=== PATIENT | male | born 1940 | race Caucasian/White ===

== ENCOUNTER 2017-04-29 07:41 | Inpatient (IN) ==
--- NOTE | 2017-04-28 21:38 | Discharge Summary ---
<Lissette Diallosita Grace - Last Filed: 04/28/17 21:36> Date of Encounter: 04/28/17 - Discharge Diagnosis (1) Status post total bilateral knee replacement Priority: Primary Status: Acute (2) Arthritis of both knees Priority: Primary Status: Acute (3) HTN (hypertension) Priority: Secondary Status: Chronic Qualifiers: Hypertension type: essential hypertension Qualified Code(s): I10 - Essential (primary) hypertension (4) DMII (diabetes mellitus, type 2) Priority: Secondary Status: Chronic Qualifiers: Diabetes mellitus complication status: with unspecified complications Diabetes mellitus halfway insulin use: unspecified director of program management insulin use status Qualified Code(s): E11.8 - Type 2 diabetes mellitus with unspecified complications (5) Thyroid disease Priority: Secondary Status: Chronic (6) Obesity Priority: Secondary Status: Chronic Qualifiers: Obesity type: due to excess calories Obesity classification: unspecified obesity classification Serious obesity comorbidity presence: unspecified whether serious comorbidity present Qualified Code(s): E66.09 - Other obesity due to excess calories; Z68.33 - Body mass index (BMI) 33.0-33.9, adult; Z68.33 - Body mass index (BMI) 33.0-33.9, adult - Discharge Medications Home Medications: Aspirin Enteric Coated [Aspirin EC] 325 mg PO BID #42 tablet. 04/28/17 [Rx] OxyCODONE Immed Rel [Roxicodone 5 MG] 5 mg PO Q6HR PRN #28 tablet 04/28/17 [Rx] Aspirin [Lo-Dose Aspirin EC] 81 mg PO DAILY 04/29/17 [History] Atorvastatin [Lipitor] 40 mg PO HS 04/29/17 [History] Cyanocobalamin (Vitamin B-12) [Vitamin B-12] 1,000 mcg SL DAILY 04/29/17 [ History] Diltiazem HCl [Diltiazem 24Hr Cd] 360 mg PO DAILY 04/29/17 [History] Donepezil [Aricept] 10 mg PO HS 04/29/17 [History] Glimepiride [Amaryl] 4 mg PO DAILY 04/29/17 [History] Glucosamine HCl/Chondr Long A Na [Cvs Glucosamine-Chondr Tablet] 1 tab PO DAILY [History] Insulin ASPART [NovoLOG] 5 unit SQ QPM 04/29/17 [History] Labetalol HCl 200 mg PO BID 04/29/17 [History] Levothyroxine [Synthroid] 100 mcg PO 0630 04/29/17 [History] Metformin HCl [Metformin HCl ER] 500 mg PO DAILY 04/29/17 [History] Mv-Mn/FA/Vit K1/Lycop/Lut/Zeax [Ocuvite Eye + Multi Tablet] 1 tab PO DAILY 04/29 [History] [place]-3/Dha/Epa/Fish Oil [Fish Oil 1,000 mg Softgel] 1 each PO DAILY 04/29/17 [ History] Pioglitazone HCl [Actos] 30 mg PO DAILY 04/29/17 [History] Allergies/Adverse Reactions: 3 Allergy/AdvReac Type Severity Reaction Status Date / Time No Known Allergies Allergy Verified 04/29/17 08:39 Primary care physician: Jayson Au MD - Patient Status Disposition: Transfer Inpatient Rehab Fac Condition: Good - Discharge Instructions Follow Up With: Jayson Au MD [Primary Care Provider] - 05/09/17 8:00 am Jad Choi MD [Partnered Physician] - 05/29/17 5:00 pm Marium Diallo PAC [Physician [employer]] - 05/09/17 9:15 am - Hospital Course Hospital course: Mr. Mike is a 76 year old male - Time Spent with Patient Total time spent providing and/or coordinating discharge services: <Jad Choi - Last Filed: 05/03/17 08:32> Date of Encounter: 05/03/17 Time of Encounter: 08:29 - Discharge Diagnosis (1) Status post total bilateral knee replacement Priority: Primary Status: Acute (2) Arthritis of both knees Priority: Primary Status: Chronic (3) HTN (hypertension) Priority: Secondary Status: Chronic Qualifiers: Hypertension type: essential hypertension Qualified Code(s): I10 - Essential (primary) hypertension (4) DMII (diabetes mellitus, type 2) Priority: Secondary Status: Chronic Qualifiers: Diabetes mellitus complication status: with unspecified complications Diabetes mellitus halfway insulin use: unspecified director of program management insulin use status Qualified Code(s): E11.8 - Type 2 diabetes mellitus with unspecified complications (5) Thyroid disease Priority: Secondary Status: Chronic (6) Obesity Priority: Secondary Status: Chronic Qualifiers: Obesity type: due to excess calories Obesity classification: adult class 1 (BMI 30 - 34.9) Serious obesity comorbidity presence: unspecified whether serious comorbidity present Body mass index: BMI 33.0-33.9 Qualified Code(s) : E66.09 - Other obesity due to excess calories; Z68.33 - Body mass index (BMI) 33.0-33.9, adult; Z68.33 - Body mass index (BMI) 33.0-33.9, adult (7) Acute blood loss anemia Priority: Primary Status: Acute (8) Acute kidney injury Priority: Primary Status: Acute (9) Obstructive uropathy Priority: Primary Status: Acute (10) Chronic kidney disease, stage 3 Priority: Secondary Status: Chronic Primary care physician: Jayson Au MD - Patient Status Functional capacity at discharge: uses cane/walker Overall status at discharge: patient is progressing back to baseline - Hospital Course Hospital course: Mr. Mike is a 76 year old male Status post bilateral total knee replacements. Patient's hematocrit dropped to 25 received 2 units packed red blood cells. Patient received a third unit prior to discharge. Patient with increase in creatinine was evaluated by his abrasive coating machine operator. Diagnosed with obstructive uropathy catheter placed. The patient had an uneventful postoperative course. They received antibiotics and physical therapy and were discharged in stable condition. There will follow -up in the office in 2 weeks. - Time Spent with Patient Total time spent providing and/or coordinating discharge services:
--- NOTE | 2017-04-28 21:46 | Physician Discharge Referral ---
<Marium Diallo L - Last Filed: 04/28/17 21:44> ExtendedCare Referral Info Transfer To: F Provider in Charge: Provider in Charge after Transfer: PCP Institutional Level of Care: Skilled - Diagnosis (1) Status post total bilateral knee replacement Priority: Primary Status: Acute (2) Arthritis of both knees Priority: Primary Status: Acute (3) HTN (hypertension) Priority: Secondary Status: Chronic (4) DMII (diabetes mellitus, type 2) Priority: Secondary Status: Chronic (5) Thyroid disease Priority: Secondary Status: Chronic (6) Obesity Priority: Secondary Status: Chronic Expected Duration of Placement: < 30 days Prognosis: Good Aware of Diagnosis: Patient Aware of Prognosis: Patient - Transfer Medications Home Medications: Aspirin Enteric Coated [Aspirin EC] 325 mg PO BID #42 tablet. 04/28/17 [Rx] OxyCODONE Immed Rel [Roxicodone 5 MG] 5 mg PO Q6HR PRN #28 tablet 04/28/17 [Rx] Aspirin [Lo-Dose Aspirin EC] 81 mg PO DAILY 04/29/17 [History] Atorvastatin [Lipitor] 40 mg PO HS 04/29/17 [History] Cyanocobalamin (Vitamin B-12) [Vitamin B-12] 1,000 mcg SL DAILY 04/29/17 [ History] Diltiazem HCl [Diltiazem 24Hr Cd] 360 mg PO DAILY 04/29/17 [History] Donepezil [Aricept] 10 mg PO HS 04/29/17 [History] Glimepiride [Amaryl] 4 mg PO DAILY 04/29/17 [History] Glucosamine HCl/Chondr Long A Na [Cvs Glucosamine-Chondr Tablet] 1 tab PO DAILY [History] Insulin ASPART [NovoLOG] 5 unit SQ QPM 04/29/17 [History] Labetalol HCl 200 mg PO BID 04/29/17 [History] Levothyroxine [Synthroid] 100 mcg PO 0630 04/29/17 [History] Metformin HCl [Metformin HCl ER] 500 mg PO DAILY 04/29/17 [History] Mv-Mn/FA/Vit K1/Lycop/Lut/Zeax [Ocuvite Eye + Multi Tablet] 1 tab PO DAILY 04/29 [History] [place]-3/Dha/Epa/Fish Oil [Fish Oil 1,000 mg Softgel] 1 each PO DAILY 04/29/17 [ History] Pioglitazone HCl [Actos] 30 mg PO DAILY 04/29/17 [History] Allergies/Adverse Reactions: 3 Allergy/AdvReac Type Severity Reaction Status Date / Time No Known Allergies Allergy Verified 04/29/17 08:39 - Respiratory Orders None Smoking Cessation: Smoking cessation has been advised. For more information, call the [place] Quit Line at 4-646-CJCF-NOW. - Ancillary Orders May use pressure relief devices daily prn, May go on GERALD w/family/respon constitution party w /meds at nurse discretion PRN, May consult with Dentist, Linseed Oil Press Tender, Operating Theatre Technician PRN - Mobility Orders Chair, Ambulate - Rehabiliation Orders Rehab Potential: Good Rehab Orders: ROM Exercises, Evaluation for Physical Therapy, Evaluation for Occupational Therapy - Treatments Skin tear care topically daily PRN per policy List/Other: Opsite dressing, leave intact until first post-operative visit. If dressing becomes >50% saturated, contact office, remove dressing and place appropriate dressing in its place. Do not allow for dressing to get wet. Betina/Zipline in place, plan to remove at post-operative day #14-16. Total Joint Precautions x 6 weeks Apply cold therapy wrap 3-6x/day for 20 minutes at a time. Encourage ambulation throughout the day Use Incentive spirometer 10x/hour. Elevate affected extremity above heart as tolerated. Brace: Wear knee immobilizer at night x 2 weeks. - Diet Orders Regular CERTIFICATION: I certify that the transfer of the above named patient to an Extended Care Facility is necessary for the continuing treatment of the diagnosis listed. The above information is true and accurate reflection of patient's current condition. Confidential - Redisclosure prohibited without a patient's written consent. <Jad Choi - Last Filed: 05/02/17 08:15> - Diagnosis (1) Status post total bilateral knee replacement Status: Acute (2) Arthritis of both knees Status: Chronic (3) HTN (hypertension) Status: Chronic (4) DMII (diabetes mellitus, type 2) Status: Chronic (5) Thyroid disease Status: Chronic (6) Obesity Status: Chronic (7) Acute blood loss anemia Status: Acute - Respiratory Orders Smoking Cessation: Smoking cessation has been advised. For more information, call the [place] [employer] Quit Line at 8-283-ILAN-NOW. CERTIFICATION: I certify that the transfer of the above named patient to an Extended Care Facility is necessary for the continuing treatment of the diagnosis listed. The above information is true and accurate reflection of patient's current condition. Confidential - Redisclosure prohibited without a patient's written consent.
--- NOTE | 2017-04-29 06:26 | History & Physical Report ---
Date of Encounter: 04/29/17 Time of Encounter: 06:26 24 Hour HP Update - Instructions Instructions: If the History and Physical is less than 30 days old and was completed prior to A.M. admission and or procedure and has NOT been updated on calendar day of procedure please complete this update prior to performing procedure. - Update Patient reports changes in Medical Condition: No Changes in examination, assessment, or condition: No Changes in Medication: No Preop tests/diagnostics Reviewed: Yes Surgery Remains Indicated: Yes Consent for Planned Operative Procedure(s) Verified: Yes - Pre-Operative Checklist Preoperative Checklist Indicated: No Prophylactic Antibiotic Ordered: Yes Is VTE Prophylaxis Indicated?: Yes
[2017-04-29] MEDS ORDERED: Ethanol\\Acetic Acid\\Na Ace\\Ben 1,000 ML IRRIG.SOLN IR ONE (08:02)
[2017-04-29] MEDS ORDERED: CeFAZolin Syr 2,000MG/20 ML 2,000 MG/20 ML SYRINGE IVPB ONE (08:10)
[2017-04-29] MEDS ORDERED: Plasma-Lyte A (PH 7.4) 1,000 ML IVC SCH (08:15)
--- NOTE | 2017-04-29 08:39 | Anesthesia Evaluation PreOp ---
Date of Encounter: 04/29/17 Time of Encounter: 08:37 - Past History Planned Operation: Bilateral total knee (robotic assisted) Cardiac History: HTN Pulmonary History: Former smoker PACKAGE SEALER History: Denies Any Significant HX Other Medical History: Renal (ckd), Diabetes Type II (uses oral medications and insulin; well controlled), Other (mild dementia) Anesthesia History: No Prior Anesthetic Complications, Past Anesthesia ( colonoscopy only) Alcohol Use: none Drug use: none Medications and Allergies Hydrochlorothiazide 02/10/15 [History] Metformin 02/10/15 [History] Synthroid 02/10/15 [History] predniSONE [PredniSONE] 10 mg PO DAILY #21 tablet 10/05/16 [Rx] Aspirin Enteric Coated [Aspirin EC] 325 mg PO BID #42 tablet. 04/28/17 [Rx] OxyCODONE Immed Rel [Roxicodone 5 MG] 5 mg PO Q6HR PRN #28 tablet 04/28/17 [Rx] 3 Allergy/AdvReac Type Severity Reaction Status Date / Time No Known Allergies Allergy Verified 04/29/17 08:39 - Meds/Allergy Pre-op Review Medications Reviewed: Yes Allergies Reviewed: Yes Beta Blockers on Current Med List: Yes (labetalol) If Beta Blockers taken, Date/Time (Last Dose taken): 04-29-17 labetalol 6:15 Anesthesia Results - Labs Laboratory Tests 04/22/17 04/22/17 04/22/17 08:44 08:44 08:44 WBC 6.0 Hgb 12.0 L Hct 38.2 Plt Count 224 PT 11.5 INR 1.1 APTT 32.8 Sodium 141 Potassium 4.2 Chloride 106 Carbon Dioxide 26 BUN 21 Creatinine 1.33 H Est GFR ( Amer) > 60 Est GFR (Non-Af Amer) 52 L BUN/Creatinine Ratio 16 Est Mean Plasma Glucose Hemoglobin A1c 04/22/17 08:44 WBC Hgb Hct Plt Count PT INR APTT Sodium Potassium Chloride Carbon Dioxide BUN Creatinine Est GFR ( Amer) Est GFR (Non-Af Amer) BUN/Creatinine Ratio Est Mean Plasma Glucose 137 Hemoglobin A1c 6.4 H - Imaging EKG: report reviewed, image reviewed (SINUS BRADYCARDIA WITH FIRST DEGREE AV BLOCK) Anesthesia Exam Last Vital Signs Temp 97.9 F 04/29/17 08:08 Pulse 60 04/29/17 08:08 Resp 18 04/29/17 08:08 BP 143/65 04/29/17 08:08 Pulse Ox 98 04/29/17 08:08 Weight: 95 kg NPO (# of Hours): > 8 hrs - HEENT Pupil (Motor): Pupils equal, EOMI Mallampati: II Teeth: Edentulous Denture Type: Upper: Complete, Lower: Complete Oral Opening: Greater than 3 - PACKAGE SEALER LOC: Oriented - Cardiac Rhythm: Regular Murmur: None - Pulmonary Breath Sounds: bilateral Clear Respiratory Effort: Symmetrical Anesthesia Assess/Plan ASA Score: 3 Modified Collins Scale for Level of Consciousness: Cooperative, oriented, and tranquil Anesthetic Plan: General (offered duramorph spinal - patient refusing at this time) Monitoring Plan: Standard Monitors Recovery Plan: PACU
[2017-04-29] MEDS ORDERED: Acetaminophen IV 1,000 MG/100 ML INFUS..BTL IVPB ONE (08:41)
[2017-04-29] MEDS ORDERED: *HR* Succinylcholine 200 MG/10 ML VIAL IVP ONE (09:34)
[2017-04-29] MEDS ORDERED: *HR* Propofol 200 MG/20 ML VIAL IVP ONE (09:34)
[2017-04-29] MEDS ORDERED: *HR* Midazolam HCl 2 MG/2 ML VIAL ONE (09:34)
[2017-04-29] MEDS ORDERED: *HR* FentaNYL (PF) 100 MCG/2 ML VIAL ONE ×2 (09:34)
[2017-04-29] MEDS ORDERED: *HR* Phenylephrine 10 MG/ML VIAL ONE (09:34)
[2017-04-29] MEDS ORDERED: Dexamethasone 4 MG/ML VIAL ONE (09:39)
[2017-04-29] MEDS ORDERED: Ketorolac 30 MG/ML VIAL ONE (09:39)
[2017-04-29] MEDS ORDERED: Ondansetron 4 MG/2 ML VIAL ONE (09:39)
[2017-04-29] MEDS ORDERED: Ondansetron 4 MG/2 ML VIAL IVP PRN ×2 (09:43→14:00)
--- NOTE | 2017-04-29 11:35 | Orthopedic Operative Note ---
Date of procedure: 04/29/17 Pre-op diagnosis: Bilateral knee arthritis Post-op diagnosis: same Procedure: Procedure: Bilateral robotic-assisted Total knee replacement Estimated blood loss: 600 cc Hardware: Metal and polyethylene replacement. Ector Femur: 5 bilateral Tibia: 5 left 4 right PS insert: 11 bilateral Patella: 36 bilateral Exam Under anesthesia:as calculated by the robot hyperextension bilateral 1 degree full flexion, no instability Procedural Notes: She does have grade 4 arthritic change in both knees at the medial compartment and patellofemoral joints. Operative procedure: The patient was brought to the operating room and placed on the operating room table. After general anesthesia was administered the operative knee was examined. Findings were noted in the exam under anesthesia. Surgery began with the left knee followed by the right knee any differences will be outlined. The operative extremity was prepped and draped in sterile surgical fashion. The patient received IV antibiotics prior to skin incision. A standard midline incision was made centered over the patella. The incision was made through the skin and subcutaneous tissue. A medial parapatellar tendon approach was performed. Care was taken to preserve tissue along the medial aspect of the patella. And to protect the patella tendon. The deep MCL was released off the medial tibia. The infra patella fat pad was excised. The patella was everted and cut was made at the level of the insertion of the quadriceps and patella tendon. The patella was sized to 36 the guide was seated and the lug holes are drilled. Knee was brought into flexion. Patient noted to have grade 4 arthritic changes medial compartments patellofemoral joints. Steinmann pins were placed in the tibia and the femur for the tibial and femoral arrays respectively. Checkpoints were also placed in the tibia and the femur for calculation purposes. The knee including the femur and the tibial registered. Osteophytes , ACL and PCL were excised at this point. Extension was to and no varus and valgus stresses were assessed, 90 degrees of flexion varus and valgus stresses were assessed and components were adjusted on the computer for the robotic cut positions. Femoral cuts were made first with robotic assistance, these included the anterior cut posterior cuts chamfer cuts. Tibial cut was then performed with robotic assistance as well. Bone fragments were removed, as well as the medial and lateral meniscus. The size 5 bilateral femoral guide was seated box cut was made lug holes are drilled. The size 5 left, 4 right tibial tray was seated and prepared with the fin cutter. Trial reduction with the 11 PS Georgie revealed hyperextension of 1 degree bilateral and full flexion. No varus valgus instability. Trial reduction revealed excellent patella tracking. All trial components were removed all bony surfaces were irrigated. Tibia cemented first followed by femur 11 PS Georgie size was seated and secured patella. Patient had similar findings for motion and stability. The knee was closed by the PA. The knee was then irrigated out with 2 L of pulse irrigation. The extensor mechanism was closed with #2 FiberWire suture and #2 PDS suture. The subcutaneous tissue was then irrigated and closed deep with #1 PDS suture superficially with 0 PDS suture and skin was closed with zip tie The patient was then placed in a sterile dressing and a postoperative brace extubated and transferred to recovery room in stable condition. Anesthesia: LAVELLA Surgeon: Jad Choi Condition: stable Disposition: PACU
[2017-04-29] MEDS: *HR* HYDROmorphone (PF) 1 MG/ML SYRINGE IVP PRN ×2 (12:29→12:31)
[2017-04-29 12:38] LABS: Hematocrit 34.3 % (37.5-50.1); Hemoglobin 10.7 g/dL (12.9-16.9)
[2017-04-29] MEDS ORDERED: *HR* HYDROmorphone (PF) 1 MG/ML SYRINGE ONE (12:41)
[2017-04-29] MEDS ORDERED: *HR* HYDROmorphone (PF) 1 MG/ML SYRINGE IM ONE (12:43)
[2017-04-29] MEDS ORDERED: *HR* HYDROmorphone (PF) 1 MG/ML SYRINGE IVP ONE (13:01)
[2017-04-29] MEDS ORDERED: Sennosides 8.6 MG TABLET PO PRN (14:00)
[2017-04-29] MEDS ORDERED: MOM Conc 10 ML UD.LIQ PO PRN (14:00)
[2017-04-29] MEDS ORDERED: Dextrose Gel 15 GM PO PRN ×2 (14:00)
[2017-04-29] MEDS ORDERED: *HR* Dextrose 50 % in Water (Syg) 50 ML SYRINGE IVP PRN (14:00)
[2017-04-29] MEDS ORDERED: Naloxone 0.4 MG/ML INJ IVP PRN (14:00)
[2017-04-29] MEDS ORDERED: *HR* OxyCODONE Immed Rel 5 MG TABLET PO PRN (14:00)
[2017-04-29] MEDS ORDERED: D5% in Water 1,000 ML IVC PRN (14:00)
[2017-04-29] MEDS ORDERED: Temazepam 15 MG CAPSULE PO PRN (14:00)
--- NOTE | 2017-04-29 14:17 | Anesthesia Evaluation Post Op ---
Date of Encounter: 04/29/17 Time of Encounter: 14:05 - Vital Signs Vital Signs: Last Vital Signs Temp 99.0 F 04/29/17 14:08 Pulse 58 04/29/17 14:08 Resp 14 04/29/17 14:08 BP 146/85 04/29/17 14:08 Pulse Ox 99 04/29/17 14:12 - Lungs Lungs: Clear Ascult./Percussion - Airway Airway: Non-obstructed - Cardiovascular Regular Rate - Mental Status Mental Status: Alert & Oriented, Answers Appropriately - Pain Pain Scale: 4 - Nausea Vomiting Nausea Vomiting: Not Present - Hydration Hydration: NPO - Discharge PostOp Status: Transfer Patient to floor
[2017-04-29] MEDS: Insulin LISPRO 300 UNITS/3 ML VIAL SQ SCH ×4 (14:50→21:16)
[2017-04-29] MEDS: *HR* Metformin 500 MG TABLET PO SCH (15:33)
[2017-04-29] MEDS: *HR* OxyCODONE Immed Rel 5 MG TABLET PO PRN (15:33)
[2017-04-29] MEDS: CeFAZolin Premix DUPLEX 2,000 MG/50 ML BAG IVPB SCH ×2 (15:35→23:35)
[2017-04-29] MEDS ORDERED: *HR* Enoxaparin 30 MG/0.3 ML SYRINGE SQ SCH (18:00)
[2017-04-29] MEDS: *HR* Enoxaparin 30 MG/0.3 ML SYRINGE SQ SCH (18:45)
[2017-04-29] MEDS: Ringers Solution, Lactated 1,000 ML IVC SCH ×2 (21:29→23:21)
[2017-04-30] MEDS: *HR* HYDROmorphone (PF) 1 MG/ML SYRINGE IVP PRN ×4 (02:20→14:07)
[2017-04-30] MEDS: *HR* Enoxaparin 30 MG/0.3 ML SYRINGE SQ SCH ×2 (04:58→17:08)
[2017-04-30 06:20] LABS: Hematocrit 30.3 % (37.5-50.1); Hemoglobin 9.4 g/dL (12.9-16.9)
[2017-04-30 06:40] LABS: Potassium 4.9 mEq/L (3.5-4.5)
--- NOTE | 2017-04-30 06:45 | Orthopedics Progress Note ---
Date of Encounter: 04/30/17 Time of Encounter: 06:44 - Assessment and Plan (1) Status post total bilateral knee replacement Current Visit: No Status: Acute (2) Arthritis of both knees Current Visit: No Status: Chronic (3) HTN (hypertension) Current Visit: No Status: Chronic Qualifiers: Hypertension type: essential hypertension Qualified Code(s): I10 - Essential (primary) hypertension (4) DMII (diabetes mellitus, type 2) Current Visit: No Status: Chronic Qualifiers: Diabetes mellitus complication status: with unspecified complications Diabetes mellitus ocean transportation intermediary insulin use: unspecified ocean transportation intermediary insulin use status Qualified Code(s): E11.8 - Type 2 diabetes mellitus with unspecified complications (5) Thyroid disease Current Visit: No Status: Chronic (6) Obesity Current Visit: No Status: Chronic Qualifiers: Obesity type: due to excess calories Obesity classification: adult class 1 (BMI 30 - 34.9) Serious obesity comorbidity presence: unspecified whether serious comorbidity present Body mass index: BMI 33.0-33.9 Qualified Code(s) : E66.09 - Other obesity due to excess calories; Z68.33 - Body mass index (BMI) 33.0-33.9, adult; Z68.33 - Body mass index (BMI) 33.0-33.9, adult (7) Acute blood loss anemia Current Visit: Yes Status: Acute Subjective Interval history: Patient was seen this morning doing well without complaints. Afebrile vital signs stable. Operative extremity: Neurovascularly intact Dressing clean dry and intact right, saturated left will be changed today Calves nontender Assessment and plan: Continue with postoperative care Hematocrit 30 Objective Vital signs: Vital Signs Temp Pulse Resp BP Pulse Ox 04/30/17 04:54 98.9 F 67 16 150/67 94 04/30/17 00:02 99.0 F 76 14 129/63 94 04/29/17 18:33 99.0 F 65 14 152/74 98 04/29/17 16:40 98.7 F 60 14 156/85 97 04/29/17 15:02 99.0 F 54 14 142/71 96 04/29/17 14:44 99.3 F 65 14 162/47 99 04/29/17 14:12 99 04/29/17 14:08 99.0 F 58 14 146/85 100 04/29/17 13:40 99.6 F 49 12 128/90 100 04/29/17 13:30 99.6 F 62 12 150/72 99 04/29/17 13:20 50 12 145/71 99 04/29/17 13:10 99.6 F 61 16 165/64 99 04/29/17 13:00 50 9 152/97 98 04/29/17 12:50 49 10 151/74 98 04/29/17 12:40 98.7 F 53 12 157/74 98 04/29/17 12:30 50 12 178/87 99 04/29/17 12:20 57 10 170/58 98 04/29/17 12:10 98.3 F 54 16 188/90 100 04/29/17 08:08 97.9 F 60 18 143/65 98 Intake and Output 04/29/17 04/29/17 04/30/17 15:59 23:59 07:59 Intake Total 20 / 20 510 / 510 Output Total 600 / 600 0 / 0 0 / 0 Balance -580 / -580 510 / 510 0 / 0 Intake: IV Fluids 20 / 20 100 / 100 Ancef Premix DUPLEX 2,000 mg In 100 / 100 50 ml @ 100 mls/hr IVPB Q8HR CARLOS Rx#:[id number] Ancef Syringe 2,000 MG/20 ML 2, 20 / 20 000 mg In 20 ml @ 200 mls/hr IVPB PREOP ONE Rx#:[id number] Oral 410 / 410 Output: Urine 0 / 0 0 / 0 Estimated Blood Loss 600 / 600 Other: Meal Dinner # Voids 1 2 Weight 94.801 kg Blood Glucose* 252 175 - Labs CBC & BMP: 04/30/17 04:43 04/30/17 04:43 Labs: Abnormal lab results Hgb 9.4 g/dL (12.9-16.9) L 04/30/17 04:43 Hct 30.3 % (37.5-50.1) L 04/30/17 04:43 Potassium 4.9 mEq/L (3.5-4.5) H 04/30/17 04:43 BUN 31 mg/dL (8-26) H 04/30/17 04:43 Creatinine 1.92 mg/dL (0.72-1.25) H 04/30/17 04:43 Est GFR ( Amer) 42 (> 60) L 04/30/17 04:43 Est GFR (Non-Af Amer) 34 (> 60) L 04/30/17 04:43 Glucose 218 mg/dL (70-99) H 04/30/17 04:43 POC Glucose 175 (58-89) H 04/29/17 20:32 Calculated Osmolality 301 (280-300) H 04/30/17 04:43 Calcium 8.0 mg/dL (8.6-10.8) L 04/30/17 04:43 - VTE Documentation of Mechanical Device: Venous foot pump, device Consult Discharge Plan - Plan Referrals: Jayson Au MD [Primary Care Provider] -
[2017-04-30] MEDS: *HR* Pioglitazone 30 MG TABLET PO SCH (08:29)
[2017-04-30] MEDS: Insulin LISPRO 300 UNITS/3 ML VIAL SQ SCH ×5 (08:29→20:28)
[2017-04-30] MEDS: Diltiazem CD (24hr) 180 MG CAPSULE PO SCH (08:30)
[2017-04-30] MEDS: *HR* Glimepiride 4 MG TABLET PO SCH (08:30)
[2017-04-30] MEDS: *HR* OxyCODONE Immed Rel 5 MG TABLET PO PRN ×3 (08:30→20:19)
[2017-04-30] MEDS: Cyanocobalamin (B-12) 1,000 MCG TABLET PO SCH (08:30)
[2017-04-30] MEDS: *HR* Metformin 500 MG TABLET PO SCH ×2 (08:30→16:08)
[2017-04-30] MEDS: Multivit/Ca/Min/Fe/FA 1 TAB TABLET PO SCH (08:30)
[2017-04-30] MEDS: Aspirin Enteric Coated 81 MG Tablet PO SCH (08:30)
[2017-04-30] MEDS ORDERED: NON-FORMULARY MEDICATION 1 EACH EACH (Metformin Hcl [Metformin Hcl Er] 500 MG) PO SCH (09:00)
[2017-04-30] MEDS: Fish Oil 1,000 Mg Softgel PO SCH (09:54)
[2017-04-30] MEDS ORDERED: 0.9 % Sodium Chloride 500 ML IVC ONE ×3 (13:31→16:14)
--- NOTE | 2017-04-30 16:21 | Event Note ---
Date of Encounter: 04/30/17 Time of Encounter: 16:19 POD#.1 *Patient has baseline early dementia - on aricept for this. A&O x 1 - patient's family in room, this is patient's baseline. Labs: Decline in kidney function - Baseline GFR 57, Cre 1.33 04/30: GFR 32, Cre 1.99 *2 Bolus Given *No output since 04/29 - Bladder scan performed x 2, 157mL of urine. Order given to Straight cath at 250mL and greater. Continue to bladder scan. Patient seen at bedside. D/C plan: [facility]
[2017-05-01] MEDS: *HR* OxyCODONE Immed Rel 5 MG TABLET PO PRN ×2 (05:18→17:57)
[2017-05-01] MEDS: *HR* Enoxaparin 30 MG/0.3 ML SYRINGE SQ SCH (05:19)
[2017-05-01 05:36] LABS: Hemoglobin 7.8 g/dL (12.9-16.9)
[2017-05-01 05:51] LABS: Calcium 7.9 mg/dL (8.6-10.8); Potassium 4.9 mEq/L (3.5-4.5)
[2017-05-01] MEDS: *HR* HYDROmorphone (PF) 1 MG/ML SYRINGE IVP PRN (06:45)
--- NOTE | 2017-05-01 07:42 | Orthopedics Progress Note ---
Date of Encounter: 05/01/17 Time of Encounter: 07:42 - Assessment and Plan (1) Status post total bilateral knee replacement Current Visit: No Status: Acute (2) Arthritis of both knees Current Visit: No Status: Chronic (3) HTN (hypertension) Current Visit: No Status: Chronic Qualifiers: Hypertension type: essential hypertension Qualified Code(s): I10 - Essential (primary) hypertension (4) DMII (diabetes mellitus, type 2) Current Visit: No Status: Chronic Qualifiers: Diabetes mellitus complication status: with unspecified complications Diabetes mellitus revenue enforcement agent insulin use: unspecified [place] [facility] insulin use status Qualified Code(s): E11.8 - Type 2 diabetes mellitus with unspecified complications (5) Thyroid disease Current Visit: No Status: Chronic (6) Obesity Current Visit: No Status: Chronic Qualifiers: Obesity type: due to excess calories Obesity classification: adult class 1 (BMI 30 - 34.9) Serious obesity comorbidity presence: unspecified whether serious comorbidity present Body mass index: BMI 33.0-33.9 Qualified Code(s) : E66.09 - Other obesity due to excess calories; Z68.33 - Body mass index (BMI) 33.0-33.9, adult; Z68.33 - Body mass index (BMI) 33.0-33.9, adult (7) Acute blood loss anemia Current Visit: Yes Status: Acute Subjective Interval history: Patient was seen this morning doing well without complaints. Afebrile vital signs stable. Operative extremity: Neurovascularly intact Dressing clean dry and intact right, saturated left will be changed today Calves nontender Assessment and plan: Continue with postoperative care Hematocrit 25 transfuse 2 units Objective Vital signs: Vital Signs Temp Pulse Resp BP Pulse Ox 05/01/17 06:38 99.3 F 76 20 139/57 96 05/01/17 04:52 98.8 F 78 16 126/64 96 04/30/17 23:19 99.5 F 77 18 129/55 95 04/30/17 19:05 99.1 F 71 16 117/50 96 04/30/17 15:39 97.7 F 58 20 157/68 93 04/30/17 11:10 98.3 F 76 20 128/61 93 Intake and Output 04/30/17 04/30/17 05/01/17 15:59 23:59 07:59 Intake Total 740 / 740 1010 / 1010 50 / 50 Output Total 300 / 300 Balance 740 / 740 710 / 710 50 / 50 Intake: IV Fluids 500 / 500 500 / 500 0.9 % Sodium Chloride 500 ML @ 500 / 500 500 / 500 1875 mls/hr IVC .Q16M ONE Rx#: [id number] Oral 240 / 240 510 / 510 50 / 50 Output: Urine 0 / 0 Straight Cath 300 / 300 Other: Meal Breakfast Dinner Percent of Meal Consumed 10% 75% Blood Glucose* 133 195 168 - Labs CBC & BMP: 05/01/17 04:38 05/01/17 04:38 Labs: Abnormal lab results Hgb 7.8 g/dL (12.9-16.9) L D 05/01/17 04:38 Hct 25.0 % (37.5-50.1) L 05/01/17 04:38 Potassium 4.9 mEq/L (3.5-4.5) H 05/01/17 04:38 BUN 45 mg/dL (8-26) H D 05/01/17 04:38 Creatinine 2.51 mg/dL (0.72-1.25) H 05/01/17 04:38 Est GFR ( Amer) 31 (> 60) L 05/01/17 04:38 Est GFR (Non-Af Amer) 25 (> 60) L 05/01/17 04:38 Glucose 161 mg/dL (70-99) H 05/01/17 04:38 POC Glucose 168 (58-89) H 05/01/17 07:06 Calcium 7.9 mg/dL (8.6-10.8) L 05/01/17 04:38 - VTE Documentation of Mechanical Device: Venous foot pump, device Consult Discharge Plan - Plan Referrals: Jayson Au MD [Primary Care Provider] -
[2017-05-01] MEDS: *HR* Pioglitazone 30 MG TABLET PO SCH (08:15)
[2017-05-01] MEDS: Cyanocobalamin (B-12) 1,000 MCG TABLET PO SCH (08:15)
[2017-05-01] MEDS: Aspirin Enteric Coated 81 MG Tablet PO SCH (08:16)
[2017-05-01] MEDS: Multivit/Ca/Min/Fe/FA 1 TAB TABLET PO SCH (08:16)
[2017-05-01] MEDS: Diltiazem CD (24hr) 180 MG CAPSULE PO SCH (08:16)
[2017-05-01] MEDS: *HR* Glimepiride 4 MG TABLET PO SCH (08:16)
[2017-05-01] MEDS: *HR* Metformin 500 MG TABLET PO SCH (08:16)
[2017-05-01] MEDS: Fish Oil 1,000 Mg Softgel PO SCH (08:18)
[2017-05-01] MEDS: Insulin LISPRO 300 UNITS/3 ML VIAL SQ SCH ×5 (08:18→22:44)
[2017-05-01] MEDS ORDERED: 0.9 % Sodium Chloride 250 ML ONE ×2 (09:45→13:39)
--- NOTE | 2017-05-01 14:33 | Event Note ---
Date of Encounter: 05/01/17 Time of Encounter: 14:27 Nephro consult put in by Orthopedic surgery for MANNY. Upon talking to the patient , I found out that he is a patient of Dr. Hassan and last saw him in December. I spoke on the phone with SIRIA Kingsley from [facility] and made her aware of the situation and informed her that Dr. Hassan needs to be consulted since this is his patient. Attending physician, Dr. Ovalle made aware of the situation. I had ordered some basic labs for MANNY workup which I have cancelled.
--- NOTE | 2017-05-01 15:54 | Event Note ---
Date of Encounter: 05/01/17 Time of Encounter: 17:15 PCR POD#2 Bilateral TKR Robotic *Patient has baseline early dementia - on aricept for this. A&O x 1 - patient's family in room, this is patient's baseline. Labs: Decline in kidney function - Baseline GFR 57, Cre 1.33 04/30: GFR 32, Cre 1.92 05/01: GFR 25 SCr 2.51 BUN 45 *2 Bolus Given 04/30 *No output since 04/29 - Bladder scan performed x 2, 157mL of urine. Order given to Straight cath at 250mL and greater. Continue to bladder scan. 05/01 @ 1009 "Patient noted to not have voided in 12 hours. Bladder scan revealed 275ml. Patient to be straight cathed per order." Patient seen at bedside. Patient alert and oriented x 1. Receiving PRBCs during exam. Nurse available in room. Patient known to be a patient of Dr. Hassan - consulted for nephro point of view regarding renal decline. Educated on use of incentive spirometer, ambulation, and hydration. Patient educated on post-operative restrictions and care. Discussed with patient's and daughter at bedside patient's situation and they stated satisfaction with our discussion. D/C plan: ECF to [facility] likely on pending nephrology consult/ recommendations.
[2017-05-01] MEDS ORDERED: Insulin LISPRO 300 UNITS/3 ML VIAL SQ SCH (16:51)
[2017-05-02] MEDS: *HR* Enoxaparin 30 MG/0.3 ML SYRINGE SQ SCH ×2 (05:54→17:32)
[2017-05-02] MEDS: *HR* HYDROmorphone (PF) 1 MG/ML SYRINGE IVP PRN (06:02)
[2017-05-02 06:48] LABS: Hematocrit 26.6 % (37.5-50.1); Hemoglobin 9.1 g/dL (12.9-16.9)
[2017-05-02 07:03] LABS: Calcium 7.9 mg/dL (8.6-10.8); Potassium 4.7 mEq/L (3.5-4.5)
--- NOTE | 2017-05-02 08:17 | Orthopedics Progress Note ---
Date of Encounter: 05/02/17 Time of Encounter: 08:16 - Assessment and Plan (1) Status post total bilateral knee replacement Current Visit: No Status: Acute (2) Arthritis of both knees Current Visit: No Status: Chronic (3) HTN (hypertension) Current Visit: No Status: Chronic Qualifiers: Hypertension type: essential hypertension Qualified Code(s): I10 - Essential (primary) hypertension (4) DMII (diabetes mellitus, type 2) Current Visit: No Status: Chronic Qualifiers: Diabetes mellitus complication status: with unspecified complications Diabetes mellitus manager long term care insulin use: unspecified longterm insulin use status Qualified Code(s): E11.8 - Type 2 diabetes mellitus with unspecified complications (5) Thyroid disease Current Visit: No Status: Chronic (6) Obesity Current Visit: No Status: Chronic Qualifiers: Obesity type: due to excess calories Obesity classification: adult class 1 (BMI 30 - 34.9) Serious obesity comorbidity presence: unspecified whether serious comorbidity present Body mass index: BMI 33.0-33.9 Qualified Code(s) : E66.09 - Other obesity due to excess calories; Z68.33 - Body mass index (BMI) 33.0-33.9, adult; Z68.33 - Body mass index (BMI) 33.0-33.9, adult (7) Acute blood loss anemia Current Visit: Yes Status: Acute (8) Acute kidney injury Current Visit: Yes Status: Acute Subjective Interval history: Patient was seen this morning doing well without complaints. Afebrile vital signs stable. Operative extremity: Neurovascularly intact Dressing clean dry and intact right, saturated left will be changed today Calves nontender Assessment and plan: Continue with postoperative care Hematocrit 26 transfuse 2 units creatinine improvement will be discharged tomorrow Objective Vital signs: Vital Signs Temp Pulse Resp BP Pulse Ox 05/02/17 06:48 98.5 F 64 16 127/68 96 05/02/17 04:22 98.8 F 58 16 130/63 95 05/02/17 00:17 99.5 F 69 18 122/66 97 05/01/17 19:11 100.4 F H 71 18 104/67 95 05/01/17 16:52 99.6 F 70 17 113/58 96 05/01/17 14:06 98.7 F 63 16 134/49 98 05/01/17 13:51 98.3 F 67 15 125/59 97 05/01/17 13:16 98.7 F 66 15 119/65 96 05/01/17 11:13 98.5 F 71 20 136/71 93 05/01/17 10:21 98.8 F 65 16 126/68 97 05/01/17 10:06 98.4 F 64 16 116/63 97 Intake and Output 05/01/17 05/02/17 05/02/17 23:59 07:59 15:59 Intake Total 520 / 520 Output Total 150 / 150 275 / 275 Balance 370 / 370 -275 / -275 Intake: Oral 220 / 220 Blood Product 300 / 300 Rbcs Leuko Poor As-1 Unit 300 / 300 [id number] Output: Urine 150 / 150 275 / 275 Other: Meal Dinner Percent of Meal Consumed 75% # Voids 1 Blood Glucose* 211 197 - Labs CBC & BMP: 05/02/17 06:17 05/02/17 06:17 Labs: Abnormal lab results Hgb 9.1 g/dL (12.9-16.9) L 05/02/17 06:17 Hct 26.6 % (37.5-50.1) L 05/02/17 06:17 Sodium 132 mEq/L (136-145) L 05/02/17 06:17 Potassium 4.7 mEq/L (3.5-4.5) H 05/02/17 06:17 BUN 53 mg/dL (8-26) H 05/02/17 06:17 Creatinine 2.12 mg/dL (0.72-1.25) H 05/02/17 06:17 Est GFR ( Amer) 37 (> 60) L 05/02/17 06:17 Est GFR (Non-Af Amer) 31 (> 60) L 05/02/17 06:17 Glucose 200 mg/dL (70-99) H 05/02/17 06:17 POC Glucose 267 (58-89) H 05/01/17 16:54 Calcium 7.9 mg/dL (8.6-10.8) L 05/02/17 06:17 - VTE Documentation of Mechanical Device: Venous foot pump, device Consult Discharge Plan - Plan Referrals: Jayson Au MD [Primary Care Provider] - 05/09/17 8:00 am Jad Choi MD [Partnered Physician] - 05/29/17 5:00 pm Marium Diallo PAC [Physician Mails Supervisor] - 05/09/17 9:15 am
[2017-05-02] MEDS: Multivit/Ca/Min/Fe/FA 1 TAB TABLET PO SCH (08:24)
[2017-05-02] MEDS: Cyanocobalamin (B-12) 1,000 MCG TABLET PO SCH (08:24)
[2017-05-02] MEDS: Insulin LISPRO 300 UNITS/3 ML VIAL SQ SCH ×5 (08:24→21:18)
[2017-05-02] MEDS: Diltiazem CD (24hr) 180 MG CAPSULE PO SCH (08:24)
[2017-05-02] MEDS: Aspirin Enteric Coated 81 MG Tablet PO SCH (08:24)
[2017-05-02] MEDS: *HR* Glimepiride 4 MG TABLET PO SCH (08:24)
[2017-05-02] MEDS: Fish Oil 1,000 Mg Softgel PO SCH (08:36)
[2017-05-02] MEDS: *HR* OxyCODONE Immed Rel 5 MG TABLET PO PRN (08:39)
--- NOTE | 2017-05-02 10:05 | Nephrology Consult Note ---
Date of Encounter: 05/02/17 Time of Encounter: 09:25 Assessment and Plan (1) Acute kidney injury Current Visit: Yes Status: Acute MANNY superimposed on CKD 3, baseline creat 1.3- Most likely related to hypovolemia, post op hgb 7.8. Transfused with 2 units PRBC, Hgb 9.1. Creat peaked 2.51 with improvement today of 2.12. Will do Renal US to rule out obstructive uropathy and place indwelling wong catheter for present time versus PRN straight cath. Obtain UA/C&S. Will continue to monitor. History of Present Illness - Reason for Consult Acute Kidney Injury - History of Present Illness Mr. Mike is a 76 year old male, known to practice with CKD stage 3 in setting of diabetes and hypertension. Last seen in December. Baseline creat 1.3. Also has history of early dementia, present during consult, providing health information. Patient is S/P bilateral knee replacement on Apr.30. She states patient has been having need to void but is unable to urinate and has been having bladder scans performed and has been straight cathed times 2, 250ml and 275 ml respectively. Creat peaked yesterday at 2.51, today slow improvement 2.12. states patient has been eating and drinking. Oral and IV intake yesterday documented at 660cc. denies NSAID use. No hypotension noted. LE with 1+ pitting edema and mild scrotal edema. Noted rec'd 2 units PRBC yesterday for Hgb 7.8, today 9.1. Past Med Surg Social Fam HX - Past Medical History Medical history: dementia, diabetes, hypertension, thyroid disease Psychiatric history: no psych history - Past Surgical History Surgical History: no surgical history - Social History Smoking Status: Former smoker Smokeless Tobacco Status: No Alcohol use: none Drug use: none - Family History Daughter Hx Family Cardiac Disorders: No Hx Family Respiratory Disorders: No Hx Family Cancer: No Hx Family GI Disorders: No Hx Family Endocrine Disorder: No Hx Family Neurologic Disorders: No Medications and Allergies Aspirin Enteric Coated [Aspirin EC] 325 mg PO BID #42 tablet. 04/28/17 [Rx] OxyCODONE Immed Rel [Roxicodone 5 MG] 5 mg PO Q6HR PRN #28 tablet 04/28/17 [Rx] Aspirin [Lo-Dose Aspirin EC] 81 mg PO DAILY 04/29/17 [History] Atorvastatin [Lipitor] 40 mg PO HS 04/29/17 [History] Cyanocobalamin (Vitamin B-12) [Vitamin B-12] 1,000 mcg SL DAILY 04/29/17 [ History] Diltiazem HCl [Diltiazem 24Hr Cd] 360 mg PO DAILY 04/29/17 [History] Donepezil [Aricept] 10 mg PO HS 04/29/17 [History] Glimepiride [Amaryl] 4 mg PO DAILY 04/29/17 [History] Glucosamine HCl/Chondr Long A Na [Cvs Glucosamine-Chondr Tablet] 1 tab PO DAILY [History] Insulin ASPART [NovoLOG] 5 unit SQ QPM 04/29/17 [History] Labetalol HCl 200 mg PO BID 04/29/17 [History] Levothyroxine [Synthroid] 100 mcg PO 0630 04/29/17 [History] Metformin HCl [Metformin HCl ER] 500 mg PO DAILY 04/29/17 [History] Mv-Mn/FA/Vit K1/Lycop/Lut/Zeax [Ocuvite Eye + Multi Tablet] 1 tab PO DAILY 04/29 [History] Sharon-3/Dha/Epa/Fish Oil [Fish Oil 1,000 mg Softgel] 1 each PO DAILY 04/29/17 [ History] Pioglitazone HCl [Actos] 30 mg PO DAILY 04/29/17 [History] 3 Allergy/AdvReac Type Severity Reaction Status Date / Time No Known Allergies Allergy Verified 04/29/17 08:39 Review of Systems All Systems: reviewed and no additional remarkable complaints except as stated Exam - Vital Signs Vital signs: Initial Vital Signs Temp Pulse Resp BP Pulse Ox 97.9 F 60 18 143/65 98 04/29/17 08:08 04/29/17 08:08 04/29/17 08:08 04/29/17 08:08 04/29/17 08:08 Vital Signs - Last 8 Hours Temp Pulse Resp BP Pulse Ox 05/02/17 06:48 98.5 F 64 16 127/68 96 05/02/17 04:22 98.8 F 58 16 130/63 95 Intake and Output 05/01/17 05/02/17 05/02/17 23:59 07:59 15:59 Intake Total 520 / 520 Output Total 150 / 150 275 / 275 Balance 370 / 370 -275 / -275 Intake: Oral 220 / 220 Blood Product 300 / 300 Rbcs Leuko Poor As-1 Unit 300 / 300 [id number] Output: Urine 150 / 150 275 / 275 Other: Meal Dinner Percent of Meal Consumed 75% # Voids 1 Blood Glucose* 211 197 - General Appearance General appearance: well-developed, well-nourished, appears started age, obese EENT: mucous membranes moist Neck: no JVD, no carotid bruit Respiratory: clear Cardiology: edema, regular rate, regular rhythm Additional Comments: LE with 1+ pitting edema and mild scrotal edema. Gastrointestinal: normoactive bowel sounds, no tenderness Integumentary: warm and dry Psychiatric: mood/affect appropriate Results - Lab Results 05/02/17 06:17 05/02/17 06:17 Most recent lab results Calcium 7.9 mg/dL (8.6-10.8) L 05/02/17 06:17 Consult Discharge Plan - Plan Referrals: Jayson Au MD [Primary Care Provider] - 05/09/17 8:00 am Jad Choi MD [Partnered Physician] - 05/29/17 5:00 pm Marium Diallo PAC [Physician Wool Hanker] - 05/09/17 9:15 am
--- NOTE | 2017-05-02 12:28 | Event Note ---
<Marium Diallo - Last Filed: 05/02/17 12:28> Date of Encounter: 05/02/17 MANNY superimposed on CKD 3, baseline creat 1.3- Most likely related to hypovolemia, post op hgb 7.8. Transfused with 2 units PRBC, Hgb 9.1. Creat peaked 2.51 with improvement today of 2.12. Will do Renal US to rule out obstructive uropathy and place indwelling wong catheter for present time versus PRN straight cath. Obtain UA/C&S. Will continue to monitor. <Jad Choi - Last Filed: 05/04/17 06:26> Date of Encounter: 05/04/17 Time of Encounter: 06:26
[2017-05-02 13:28] LABS: Bilirubin,Urine Small (Negative); Blood,Urine Negative (Negative); Clarity,Urine Cloudy (Clear); Color,Urine Yellow (Yellow); Glucose,Urine (UA) Normal (Normal); Ketones,Urine Negative (Negative); Leukocyte Esterase,Urine Negative (Negative); Nitrite,Urine Negative (Negative); PH,Urine 5.5 pH Units (5.0-8.0); Protein,Urine 30 mg/dL (Neg-Trace); Specific Gravity,Urine 1.023 (1.010-1.025); Urobilinogen,Urine Normal (Normal)
[2017-05-02 13:30] LABS: Bacteria,Urine None Seen per hpf (None-Few); Hyaline Casts,Urine None Seen per lpf (None-Few)
[2017-05-02 13:35] LABS: RBC,Urine 0-3 per hpf (0-3); Squamous Epithelial Cell,Urine Few per lpf (None-Few)
[2017-05-02 13:36] LABS: Yeast,Urine Few per hpf (None Seen)
[2017-05-02] MEDS: *HR* Metformin 500 MG TABLET PO SCH (17:32)
[2017-05-03] MEDS: *HR* Enoxaparin 30 MG/0.3 ML SYRINGE SQ SCH ×2 (06:00→17:26)
--- NOTE | 2017-05-03 08:34 | Orthopedics Progress Note ---
Date of Encounter: 05/03/17 Time of Encounter: 08:32 - Assessment and Plan (1) Status post total bilateral knee replacement Current Visit: No Status: Acute (2) Arthritis of both knees Current Visit: No Status: Chronic (3) HTN (hypertension) Current Visit: No Status: Chronic Qualifiers: Hypertension type: essential hypertension Qualified Code(s): I10 - Essential (primary) hypertension (4) DMII (diabetes mellitus, type 2) Current Visit: No Status: Chronic Qualifiers: Diabetes mellitus complication status: with unspecified complications Diabetes mellitus medical terminologist insulin use: unspecified nursing home insulin use status Qualified Code(s): E11.8 - Type 2 diabetes mellitus with unspecified complications (5) Thyroid disease Current Visit: No Status: Chronic (6) Obesity Current Visit: No Status: Chronic Qualifiers: Obesity type: due to excess calories Obesity classification: adult class 1 (BMI 30 - 34.9) Serious obesity comorbidity presence: unspecified whether serious comorbidity present Body mass index: BMI 33.0-33.9 Qualified Code(s) : E66.09 - Other obesity due to excess calories; Z68.33 - Body mass index (BMI) 33.0-33.9, adult; Z68.33 - Body mass index (BMI) 33.0-33.9, adult (7) Acute blood loss anemia Current Visit: Yes Status: Acute (8) Acute kidney injury Current Visit: Yes Status: Acute (9) Obstructive uropathy Current Visit: Yes Status: Acute (10) Chronic kidney disease, stage 3 Current Visit: Yes Status: Chronic Subjective Interval history: Patient was seen this morning doing well without complaints. Afebrile vital signs stable. Operative extremity: Neurovascularly intact Dressing clean dry and intact right, saturated left will be changed today Calves nontender Assessment and plan: Continue with postoperative care The patient seen by nephrology yesterday diagnosed with obstructive uropathy catheter placed. Plan for discharge for today catheter management by nephrology. Objective Vital signs: Vital Signs Temp Pulse Resp BP Pulse Ox 05/03/17 06:19 98.7 F 68 16 144/73 98 05/03/17 04:04 98.4 F 62 15 143/67 97 05/02/17 23:02 98.6 F 66 18 145/72 97 05/02/17 20:56 99.0 F 69 16 145/66 98 05/02/17 16:00 98.1 F 73 16 112/56 98 05/02/17 09:59 98.8 F 76 18 129/74 95 Intake and Output 05/02/17 05/03/17 05/03/17 23:59 07:59 15:59 Intake Total 400 / 400 Output Total 1050 / 1050 900 / 900 Balance -650 / -650 -900 / -900 Intake: Oral 400 / 400 Output: Urine 350 / 350 Catheter 1050 / 1050 550 / 550 Other: Meal Dinner Percent of Meal Consumed 50% Blood Glucose* 224 191 - Labs CBC & BMP: 05/02/17 06:17 05/02/17 06:17 Labs: Abnormal lab results Hgb 9.1 g/dL (12.9-16.9) L 05/02/17 06:17 Hct 26.6 % (37.5-50.1) L 05/02/17 06:17 Sodium 132 mEq/L (136-145) L 05/02/17 06:17 Potassium 4.7 mEq/L (3.5-4.5) H 05/02/17 06:17 BUN 53 mg/dL (8-26) H 05/02/17 06:17 Creatinine 2.12 mg/dL (0.72-1.25) H 05/02/17 06:17 Est GFR ( Amer) 37 (> 60) L 05/02/17 06:17 Est GFR (Non-Af Amer) 31 (> 60) L 05/02/17 06:17 Glucose 200 mg/dL (70-99) H 05/02/17 06:17 POC Glucose 224 (58-89) H 05/02/17 20:54 Calcium 7.9 mg/dL (8.6-10.8) L 05/02/17 06:17 Urine Clarity Cloudy (Clear) A 05/02/17 13:20 Urine Protein 30 mg/dL (Neg-Trace) H 05/02/17 13:20 Urine Bilirubin Small (Negative) H 05/02/17 13:20 Urine Microscopic WBC 5-15 per hpf (0-3) H 05/02/17 13:20 Urine Yeast Few per hpf (None Seen) H 05/02/17 13:20 - VTE Documentation of Mechanical Device: Venous foot pump, device Consult Discharge Plan - Plan Referrals: Jayson Au MD [Primary Care Provider] - 05/09/17 8:00 am Jad Choi MD [Partnered Physician] - 05/29/17 5:00 pm Marium Diallo PAC [Physician Mobile Electronics Installer] - 05/09/17 9:15 am
[2017-05-03] MEDS: Cyanocobalamin (B-12) 1,000 MCG TABLET PO SCH (08:56)
[2017-05-03] MEDS: *HR* Metformin 500 MG TABLET PO SCH ×2 (08:57→17:26)
[2017-05-03] MEDS: *HR* Glimepiride 4 MG TABLET PO SCH (08:57)
[2017-05-03] MEDS: Diltiazem CD (24hr) 180 MG CAPSULE PO SCH (08:57)
[2017-05-03] MEDS: *HR* Pioglitazone 30 MG TABLET PO SCH (08:57)
[2017-05-03] MEDS: Multivit/Ca/Min/Fe/FA 1 TAB TABLET PO SCH (08:57)
[2017-05-03] MEDS: Insulin LISPRO 300 UNITS/3 ML VIAL SQ SCH ×5 (08:58→21:11)
[2017-05-03] MEDS: Aspirin Enteric Coated 81 MG Tablet PO SCH (08:58)
[2017-05-03 09:04] LABS: Albumin 2.5 g/dL (3.5-5.0); Albumin/Globulin Ratio 0.8 (1.1-2.2); Calcium 8.3 mg/dL (8.6-10.8); Potassium 4.9 mEq/L (3.5-4.5); Total Protein 5.5 g/dL (6.0-8.3)
[2017-05-03] MEDS: Fish Oil 1,000 Mg Softgel PO SCH (09:05)
--- NOTE | 2017-05-03 09:23 | Nephrology Progress Note ---
Date of Encounter: 05/03/17 Time of Encounter: 09:05 - Assessment and Plan (1) Acute kidney injury Current Visit: Yes Status: Acute MANNY superimposed on CKD 3, baseline creat 1.3- Most likely related to hypovolemia, post op hgb 7.8. Transfused with 2 units PRBC, Hgb 9.1. Creat peaked 2.51 with improvement today of 1.77. Renal US-no obstructive uropathy, no hydronephrosis, focal lesion left kidney with recommendation for MRI which has been ordered. Obtain UA negative. Will continue to monitor. Subjective Interval history: Sitting up in chair. Ate breakfast well, drinking fluids. Objective - Vital Signs Vital signs: Vital Signs Temp Pulse Resp BP Pulse Ox 05/03/17 06:19 98.7 F 68 16 144/73 98 05/03/17 04:04 98.4 F 62 15 143/67 97 05/02/17 23:02 98.6 F 66 18 145/72 97 05/02/17 20:56 99.0 F 69 16 145/66 98 05/02/17 16:00 98.1 F 73 16 112/56 98 05/02/17 09:59 98.8 F 76 18 129/74 95 Intake and Output 05/02/17 05/03/17 05/03/17 23:59 07:59 15:59 Intake Total 400 / 400 Output Total 1050 / 1050 900 / 900 Balance -650 / -650 -900 / -900 Intake: Oral 400 / 400 Output: Urine 350 / 350 Catheter 1050 / 1050 550 / 550 Other: Meal Dinner Percent of Meal Consumed 50% Blood Glucose* 224 191 - General Appearance General appearance: Present: well-developed, well-nourished, appears started age , obese Neck: Present: no JVD Respiratory: Present: clear Cardiology: Present: edema, regular rate, regular rhythm Gastrointestinal: Present: normoactive bowel sounds, no tenderness Integumentary: Present: warm and dry Psychiatric: Present: mood/affect appropriate, cooperative - Lab 05/02/17 06:17 05/03/17 08:42 Most recent lab results Calcium 8.3 mg/dL (8.6-10.8) L 05/03/17 08:42 - VTE Documentation of Mechanical Device: Venous foot pump, device Consult Discharge Plan - Plan Referrals: Jayson Au MD [Primary Care Provider] - 05/09/17 8:00 am Jad Choi MD [Partnered Physician] - 05/29/17 5:00 pm Marium Diallo PAC [Physician Connie Scratcher] - 05/09/17 9:15 am
[2017-05-04] MEDS: *HR* Enoxaparin 30 MG/0.3 ML SYRINGE SQ SCH (06:09)
--- NOTE | 2017-05-04 06:27 | Orthopedics Progress Note ---
Date of Encounter: 05/04/17 Time of Encounter: 06:27 - Assessment and Plan (1) Status post total bilateral knee replacement Current Visit: No Status: Acute (2) Arthritis of both knees Current Visit: No Status: Chronic (3) HTN (hypertension) Current Visit: No Status: Chronic Qualifiers: Hypertension type: essential hypertension Qualified Code(s): I10 - Essential (primary) hypertension (4) DMII (diabetes mellitus, type 2) Current Visit: No Status: Chronic Qualifiers: Diabetes mellitus complication status: with unspecified complications Diabetes mellitus marine oil terminal superintendent insulin use: unspecified half-way insulin use status Qualified Code(s): E11.8 - Type 2 diabetes mellitus with unspecified complications (5) Thyroid disease Current Visit: No Status: Chronic (6) Obesity Current Visit: No Status: Chronic Qualifiers: Obesity type: due to excess calories Obesity classification: adult class 1 (BMI 30 - 34.9) Serious obesity comorbidity presence: unspecified whether serious comorbidity present Body mass index: BMI 33.0-33.9 Qualified Code(s) : E66.09 - Other obesity due to excess calories; Z68.33 - Body mass index (BMI) 33.0-33.9, adult; Z68.33 - Body mass index (BMI) 33.0-33.9, adult (7) Acute blood loss anemia Current Visit: Yes Status: Acute (8) Acute kidney injury Current Visit: Yes Status: Acute (9) Obstructive uropathy Current Visit: Yes Status: Acute (10) Chronic kidney disease, stage 3 Current Visit: Yes Status: Chronic Subjective Interval history: Patient was seen this morning doing well without complaints. Afebrile vital signs stable. Operative extremity: Neurovascularly intact Dressing clean dry and intact right, saturated left will be changed today Calves nontender Assessment and plan: Continue with postoperative care Discharge today Objective Vital signs: Vital Signs Temp Pulse Resp BP Pulse Ox 05/04/17 04:18 98.5 F 68 16 136/70 97 05/03/17 19:04 99 F 66 16 131/62 97 05/03/17 15:00 99.4 F 57 16 121/88 94 05/03/17 14:38 98.3 F 68 16 124/76 95 05/03/17 10:05 98.0 F 62 18 127/78 96 Intake and Output 05/03/17 05/03/17 05/04/17 15:59 23:59 07:59 Intake Total 250 / 250 Output Total 325 / 325 550 / 550 750 / 750 Balance -75 / -75 -550 / -550 -750 / -750 Intake: Oral 250 / 250 Output: Urine 200 / 200 750 / 750 Catheter 325 / 325 350 / 350 Other: Meal Lunch Percent of Meal Consumed 75% Weight 93 kg Blood Glucose* 210 292 Patient Weight 05/04/17 23:59 Weight 93 kg - Labs CBC & BMP: 05/02/17 06:17 05/03/17 08:42 Labs: Abnormal lab results Hgb 9.1 g/dL (12.9-16.9) L 05/02/17 06:17 Hct 26.6 % (37.5-50.1) L 05/02/17 06:17 Sodium 131 mEq/L (136-145) L 05/03/17 08:42 Potassium 4.9 mEq/L (3.5-4.5) H 05/03/17 08:42 BUN 48 mg/dL (8-26) H 05/03/17 08:42 Creatinine 1.77 mg/dL (0.72-1.25) H 05/03/17 08:42 Est GFR ( Amer) 46 (> 60) L 05/03/17 08:42 Est GFR (Non-Af Amer) 38 (> 60) L 05/03/17 08:42 BUN/Creatinine Ratio 27 (6-26) H 05/03/17 08:42 Glucose 242 mg/dL (70-99) H 05/03/17 08:42 POC Glucose 119 (58-89) H 05/03/17 21:10 Calcium 8.3 mg/dL (8.6-10.8) L 05/03/17 08:42 Serum Total Protein 5.5 g/dL (6.0-8.3) L 05/03/17 08:42 Albumin 2.5 g/dL (3.5-5.0) L 05/03/17 08:42 Albumin/Globulin Ratio 0.8 (1.1-2.2) L 05/03/17 08:42 Urine Clarity Cloudy (Clear) A 05/02/17 13:20 Urine Protein 30 mg/dL (Neg-Trace) H 05/02/17 13:20 Urine Bilirubin Small (Negative) H 05/02/17 13:20 Urine Microscopic WBC 5-15 per hpf (0-3) H 05/02/17 13:20 Urine Yeast Few per hpf (None Seen) H 05/02/17 13:20 - VTE Documentation of Mechanical Device: Venous foot pump, device Consult Discharge Plan - Plan Referrals: Jayson Au MD [Primary Care Provider] - 05/09/17 8:00 am Jad Choi MD [Partnered Physician] - 05/29/17 5:00 pm Marium Diallo PAC [Physician Sales Exec] - 05/09/17 9:15 am
[2017-05-04] MEDS: Insulin LISPRO 300 UNITS/3 ML VIAL SQ SCH (08:44)
[2017-05-04] MEDS: *HR* Metformin 500 MG TABLET PO SCH (08:49)
[2017-05-04] MEDS: *HR* Pioglitazone 30 MG TABLET PO SCH (08:49)
[2017-05-04] MEDS: Diltiazem CD (24hr) 180 MG CAPSULE PO SCH (08:49)
[2017-05-04] MEDS: Multivit/Ca/Min/Fe/FA 1 TAB TABLET PO SCH (08:49)
[2017-05-04] MEDS: Aspirin Enteric Coated 81 MG Tablet PO SCH (08:50)
[2017-05-04] MEDS: Cyanocobalamin (B-12) 1,000 MCG TABLET PO SCH (08:50)
[2017-05-04] MEDS: Fish Oil 1,000 Mg Softgel PO SCH (08:50)
[2017-05-04] MEDS: *HR* Glimepiride 4 MG TABLET PO SCH (08:50)
[2017-05-04 09:07] LABS: Hematocrit 27.9 % (37.5-50.1); Hemoglobin 9.1 g/dL (12.9-16.9); Mean Corpuscular HGB Conc 32.6 g/dL (31.6-35.5); Mean Corpuscular Hemoglobin 28.9 pg (28.0-33.3); Mean Corpuscular Volume 88.6 fL (83.0-100.0); Mean Platelet Volume 10.4 fL (9.4-12.4); Platelet Count 193 K/mcL (140-400); Red Blood Count 3.15 M/mcL (4.19-5.50); Red Cell Distribution Width 14.4 % (11.5-14.5)
[2017-05-04 09:33] LABS: Albumin 2.3 g/dL (3.5-5.0); Albumin/Globulin Ratio 0.7 (1.1-2.2); Bilirubin,Total 1.1 mg/dL (0.2-1.2); Calcium 8.2 mg/dL (8.6-10.8); Globulin 3.1 g/dL (2.4-3.5); Potassium 4.9 mEq/L (3.5-4.5); Total Protein 5.4 g/dL (6.0-8.3)
--- NOTE | 2017-05-04 09:50 | Nephrology Progress Note ---
Date of Encounter: 05/04/17 Time of Encounter: 09:15 - Assessment and Plan (1) Acute kidney injury Current Visit: Yes Status: Acute MANNY superimposed on CKD 3, baseline creat 1.3- Most likely related to hypovolemia, post op hgb 7.8. Transfused with 2 units PRBC, Hgb 9.1. Creat peaked 2.51 with slow improvement today of 1.68. Renal US-no obstructive uropathy, no hydronephrosis, focal lesion left kidney with recommendation for MRI which has been ordered. MRI-The abnormality seen on ultrasound examination corresponds to a 1.3 cm simple cyst extending off the lower pole of the left kidney. The kidneys are otherwise normal with no evidence for hydronephrosis or mass.UA negative. Will continue to monitor. Subjective Interval history: Laying in bed. Ate breakfast well, drinking fluids. Objective - Vital Signs Vital signs: Vital Signs Temp Pulse Resp BP Pulse Ox 05/04/17 08:14 98.3 F 62 19 136/60 97 05/04/17 04:18 98.5 F 68 16 136/70 97 05/03/17 19:04 99 F 66 16 131/62 97 05/03/17 15:00 99.4 F 57 16 121/88 94 05/03/17 14:38 98.3 F 68 16 124/76 95 05/03/17 10:05 98.0 F 62 18 127/78 96 Intake and Output 05/03/17 05/04/17 05/04/17 23:59 07:59 15:59 Intake Total 600 / 600 Output Total 550 / 550 750 / 750 Balance -550 / -550 -750 / -750 600 / 600 Intake: Oral 600 / 600 Output: Urine 200 / 200 750 / 750 Catheter 350 / 350 Other: Meal Breakfast Percent of Meal Consumed 50% Weight 93 kg Blood Glucose* 292 151 Patient Weight 05/04/17 23:59 Weight 93 kg - General Appearance General appearance: Present: well-developed, well-nourished, appears started age , obese EENT: Present: mucous membranes moist Neck: Present: no JVD Respiratory: Present: clear Cardiology: Present: regular rate, regular rhythm Additional Comments: mild LE pitting Gastrointestinal: Present: normoactive bowel sounds, no tenderness Integumentary: Present: warm and dry Psychiatric: Present: mood/affect appropriate, cooperative - Lab 05/04/17 08:51 05/04/17 08:51 Most recent lab results Calcium 8.2 mg/dL (8.6-10.8) L 05/04/17 08:51 - VTE Documentation of Mechanical Device: Venous foot pump, device Consult Discharge Plan - Plan Referrals: Jayson Au MD [Primary Care Provider] - 05/09/17 8:00 am Jad Choi MD [Partnered Physician] - 05/29/17 5:00 pm Marium Diallo PAC [Physician Safety Glass Installer] - 05/09/17 9:15 am
[2017-05-04 11:55] VITALS: BP 132/71
== END 2017-05-04 14:32 | DRG 462 ==
LOC: SAMDAY 07:41 → 3NENU 13:59
PROVIDERS: ADMIT Orthopaedic Surgery; ATTEND Orthopaedic Surgery

== ENCOUNTER 2017-12-21 10:17 | Inpatient (IN) ==
--- NOTE | 2017-12-21 10:27 | Emergency Department Note ---
Disposition Clinical Impression: Cystic duct calculus, Cholecystitis Cholelithiasis Qualifiers: Cholelithiasis location: gallbladder Cholecystitis presence: with cholecystitis Cholecystitis acuity: acute Biliary obstruction: without biliary obstruction Qualified Code(s): K80.00 - Calculus of gallbladder with acute cholecystitis without obstruction Disposition: Admitted As Inpatient Condition: Good Referrals: Jayson Au MD [Non-Partnered Physician] - Forms: ED Satisfaction Letter, Work/School Release Time of Disposition: 12:26 General Adult HPI - General Chief complaint: ED Abdominal Pain Stated complaint: abd pain Time Seen by Provider: 12/21/17 10:22 Nursing Notes Reviewed: Yes Vital Signs Reviewed: Yes - History of Present Illness HPI Narrative: Started having right lower quadrant abdominal pain started last night. Does radiate around to his back. No history of kidney stones. Does have associated nausea. Gets worse whenever he ambulates. Has taken Tylenol with no relief of the pain. History of any abdominal surgeries. No fevers. Pain Scale: 5 - Related Data Home Medications Medication Instructions Recorded Confirmed Aspirin [Lo-Dose Aspirin EC] 81 mg PO DAILY 04/29/17 12/21/17 Atorvastatin [Lipitor] 40 mg PO HS 04/29/17 12/21/17 Cyanocobalamin (Vitamin B-12) 1,000 mcg SL DAILY 04/29/17 12/21/17 [Vitamin B-12] Diltiazem HCl [Diltiazem 24Hr Cd] 360 mg PO DAILY 04/29/17 12/21/17 Donepezil [Aricept] 2.5 mg PO HS 04/29/17 12/21/17 Glimepiride [Amaryl] 4 mg PO DAILY 04/29/17 12/21/17 Glucosamine HCl/Chondr Long A Na 1 tab PO DAILY 04/29/17 12/21/17 [[facility] Glucosamine-Chondr Tablet] Labetalol HCl 200 mg PO BID 04/29/17 12/21/17 Levothyroxine [Synthroid] [place] [address]/29/17 12/21/17 Metformin HCl [Metformin HCl ER] 500 mg PO BID 04/29/17 12/21/17 Mv-Min/FA/Vit K/Lycop/Lut/Zeax 1 tab PO DAILY 04/29/17 12/21/17 [Ocuvite Eye Plus Multi Tablet] Pioglitazone HCl [Actos] 30 mg PO DAILY 04/29/17 12/21/17 Allergies Allergy/AdvReac Type Severity Reaction Status Date / Time No Known Allergies Allergy Verified 12/21/17 12:19 All systems ED: reviewed and negative except as stated. Constitutional: Denies: fever, chills ENT ED: Denies: congestion Cardiovascular: Denies: chest pain, palpitations, syncope Respiratory: Denies: cough, dyspnea Gastrointestinal: Reports: abdominal pain, nausea. Denies: vomiting, diarrhea, hematemesis, melena, hematochezia Genitourinary: Reports: hematuria. Denies: urgency, dysuria, frequency, testicular pain, testicular mass Musculoskeletal: Reports: back pain (To the right) Past Medical History - Past Medical History Attestation: Yes The following information was validated with the patient. Source: patient Medical history: Reports: dementia, diabetes, hypertension, thyroid disease Surgical history: Reports: no surgical history Psychiatric history: Reports: no psych history - Social History Smoking Status: Never smoker Smokeless Tobacco Status: No Alcohol use: Reports: none Drug use: Reports: none Physical Exam - General Limitations: no limitations General appearance: alert, in no apparent distress - Head Head exam: atraumatic, normocephalic, normal inspection - Eye Eye exam: Present: normal appearance, PERRL, EOMI - ENT ENT exam: normal exam, normal oropharynx, mucous membranes moist - Neck Neck exam: Present: normal inspection, full ROM, trachea midline - Chest Chest inspection: Present: normal inspection, symmetric chest wall rise - Respiratory Respiratory exam: Present: normal lung sounds bilaterally. Absent: respiratory distress, accessory muscle use - Cardiovascular Cardiovascular exam: Present: regular rate, normal rhythm, normal heart sounds - Abdominal Exam Abdominal exam: Present: soft, tenderness (To palpation of right of his abdomen. Bowel intermediate between his upper and lower quadrant. Does have some mild tenderness in his right quadrant. Tenderness to the right flank that she palpate around.). Absent: distention, guarding, rigidity, organomegaly, Lemons' s sign, Rovsing's sign, tenderness at McBurney's Point - Extremities Exam Extremities exam: Present: normal inspection, full ROM, normal capillary refill. Absent: tenderness, pedal edema - Back Exam Back exam: Present: normal inspection, full ROM. Absent: tenderness, CVA tenderness (R), CVA tenderness (L) - Neurological Exam Neurological exam: Present: alert, oriented X3 - Psychiatric Psychiatric exam: Present: normal affect, normal mood - Skin Skin exam: Present: warm, dry, intact, normal color Course Course Narrative: Well-appearing male patient ambulated to the room without any difficulty. Complaining of right lower abdominal pain. States it started last night. Does have associated nausea but no vomiting. Does radiate to around to his back. No history of kidney stones but does have a history of chronic kidney disease. Denies any fevers or chills. Denies any shortness of breath coughs or rashes. No swelling to His extremities. Patient is well-appearing and conversant. Lung sounds are clear heart tones are normal. Abdomen is soft with some mild tenderness in between his right upper and right lower quadrant. This does also radiate to his back however no CVA tenderness whenever I assessed for this. He was seen at urgent care earlier and diagnosed with urine and protein in his blood on dip urine. He denies any urinary symptoms or testicular pain or swelling. He was seen here approximately 4 years ago for testicular swelling that was secondary to possible trauma. That has since resolved and he has had no complications. Patient does have a history of diabetes as well as hypertension. He has not taken his medications this morning. Family states that they have recently switched his medication and had stopped him from taking insulin. His blood sugars have been ranging in the low 100s since then. We will get basic lab workup on patient inclusive of a UA and get a CT of patient' s abdomen. He refuses any pain medication or nausea medication at this time. Last time patient ate was last night. - Reevaluation(s) Reevaluation #1: Patient has findings suggestive of cholelithiasis. There is also a stone in the cystic duct. Does have some pericholecystic fluid. Patient was reassessed and he is resting comfortably in bed at this time. I discussed these findings with him and the family. They are understanding. Time: 11:50 - Consultations Consultation #1: I spoke with Dr Merino. She states that she will be down to see the Pt. While here she did suggest that we start patient on Mefoxin Time: 11:59 Consultation #2: Dr Saldivar accepted Pt in stable condition. Time: 12:23 Vital Signs Temperature 97.9 F 06/30/18 10:19 Pulse Rate 60 12/21/17 10:19 Respiratory Rate 16 12/21/17 10:19 Blood Pressure 195/70 12/21/17 10:19 O2 Sat by Pulse Oximetry 97 12/21/17 10:19 Temperature 97.9 F 12/21/17 10:24 Pulse Rate 50 12/21/17 10:36 Respiratory Rate 20 12/21/17 10:36 Blood Pressure 172/69 12/21/17 10:36 O2 Sat by Pulse Oximetry 97 12/21/17 10:36 Oxygen Delivery Oxygen Delivery Room Air Medical Decision Making - Medical Records Medical records reviewed: Yes I reviewed the patient's medical records. - Lab Data Lab results reviewed: Yes I reviewed the patient's lab results. Result diagrams: 12/21/17 10:36 12/21/17 10:36 Lab Results 12/21/17 12/21/17 12/21/17 Range/Units 10:36 10:36 11:30 WBC 8.6 (4.3-11.1) K/mcL RBC 4.23 (4.19-5.50) M/mcL Hgb 12.7 L (12.9-16.9) g/dL Hct 39.1 (37.5-50.1) % MCV 92.4 (83.0-100.0) fL MCH 30.0 (28.0-33.3) pg MCHC 32.5 (31.6-35.5) g/dL RDW 14.2 (11.5-14.5) % Plt Count 173 (140-400) K/mcL MPV 10.2 (9.4-12.4) fL Immature Gran % 0.5 (0-4) % Seg Neutrophils % 82.1 % Lymphocytes % 8.4 % Monocytes % 8.2 % Eosinophils % 0.4 % Basophils % 0.4 % Neutrophils # 7.0 (1.6-8.9) K/mcL Lymphocytes # 0.7 (0.6-4.6) K/mcL Monocytes # 0.7 (0.0-1.3) K/mcL Eosinophils # 0.0 (0.0-0.6) K/mcL Basophils # 0.0 (0.0-0.2) K/mcL Sodium 139 (136-145) mEq/L Potassium 4.4 (3.5-5.1) mEq/L Chloride 108 H (98-107) mEq/L Carbon Dioxide 23 (23-29) mEq/L BUN 26 H (8-23) mg/dL Creatinine 1.28 (0.70-1.30) mg/dL Est GFR ( Amer) > 60 (> 60) Est GFR (Non-Af Amer) 55 L (> 60) BUN/Creatinine Ratio 20 (6-26) Glucose 157 H (70-105) mg/dL Calculated Osmolality 296 (280-300) Calcium 9.4 (8.6-10.3) mg/dL Total Bilirubin 0.7 (0.3-1.0) mg/dL Direct Bilirubin 0.2 (0.0-0.2) mg/dL Indirect Bilirubin 0.5 (0.0-1.2) mg/dL AST 15 (13-39) Units/L ALT 10 (7-52) Units/L Alkaline Phosphatase 72 (34-104) Units/L Serum Total Protein 6.7 (6.4-8.9) g/dL Albumin 4.2 (3.5-5.7) g/dL Globulin 2.5 (2.4-3.5) g/dL Albumin/Globulin Ratio 1.7 (1.1-2.2) Amylase 99 (29-103) Units/L Lipase 103 H (11-82) Units/L Urine Color Yellow (Yellow) Urine Clarity Clear (Clear) Urine pH 5.5 (5.0-8.0) pH Units Ur Specific [place] 1.024 (1.010-1.025) Urine Protein >=300 H (Neg-Trace) mg/dL Urine Glucose (UA) Normal (Normal) mg/dL Urine Ketones 15 H (Negative) mg/dL Urine Blood Trace H (Negative) Urine Nitrite Negative (Negative) Urine Bilirubin Negative (Negative) Urine Urobilinogen Normal (Normal) mg/dL Ur Leukocyte Esterase Negative (Negative) Urine Microscopic RBC 0-3 (0-3) per hpf Urine Microscopic WBC 0-3 (0-3) per hpf Ur Squamous Epith Cells None Seen (None-Few) per lpf Urine Bacteria None Seen (None-Few) per hpf Hyaline Casts None Seen (None-Few) per lpf Ur Culture Indicated? NO (NO) - Radiology Data Radiology results reviewed: Yes I reviewed the patient's radiology results. Abdomen/Pelvis CT 12/21/17 10:36 IMPRESSION: 1. Cholelithiasis with findings suggestive of acute cholecystitis. Initially, there appears to be a gallstone in the cystic duct with no findings suggestive of choledocholithiasis. Consider further evaluation with sonography, nuclear medicine hepatobiliary scan, and/or MRCP. 2. Incidental findings as above. D/ / Micha Gamez MD / Micha Gamez MD Interpreting Provider: Micha Gamez MD - EKG Data EKG #1 EKG attestation: Yes I reviewed and interpreted this EKG. EKG results narrative: Sinus bradycardia at a rate of 58. Does have first-degree AV block with SD prolongation at 222. This was on previous EKG dated 04/22/2017. QRS duration is 92. QTC is 406. QTC is 403. No signs of acute ischemia. No significant change from previous EKG.
[2017-12-21 10:46] LABS: Basophils % 0.4 %; Eosinophils % 0.4 %; Hematocrit 39.1 % (37.5-50.1); Hemoglobin 12.7 g/dL (12.9-16.9); Immature Granulocytes % 0.5 % (0-4); Lymphocytes # 0.7 K/mcL (0.6-4.6); Lymphocytes % 8.4 %; Mean Corpuscular HGB Conc 32.5 g/dL (31.6-35.5); Mean Corpuscular Volume 92.4 fL (83.0-100.0); Mean Platelet Volume 10.2 fL (9.4-12.4); Monocytes # 0.7 K/mcL (0.0-1.3); Monocytes % 8.2 %; Platelet Count 173 K/mcL (140-400); Red Blood Count 4.23 M/mcL (4.19-5.50); Red Cell Distribution Width 14.2 % (11.5-14.5); Segmented Neutrophils % 82.1 %
--- NOTE | 2017-12-21 10:46 | Emergency Department Note ---
Disposition Clinical Impression: Cholelithiasis, Cystic duct calculus, Cholecystitis Disposition: Admitted As Inpatient Condition: Good Referrals: Jayson Au MD [Primary Care Provider] - Forms: ED Satisfaction Letter, Work/School Release General Adult HPI - General Chief complaint: ED Abdominal Pain Stated complaint: RLQ abd pain Time Seen by Provider: 12/21/17 10:22 Source: patient Limitations: no limitations Nursing Notes Reviewed: Yes Vital Signs Reviewed: Yes - History of Present Illness Pain Scale: 5 - Related Data Home Medications Medication Instructions Recorded Confirmed Aspirin [Lo-Dose Aspirin EC] 81 mg PO DAILY 04/29/17 12/21/17 Atorvastatin [Lipitor] 40 mg PO HS 04/29/17 12/21/17 Cyanocobalamin (Vitamin B-12) 1,000 mcg SL DAILY 04/29/17 12/21/17 [Vitamin B-12] Diltiazem HCl [Diltiazem 24Hr Cd] 360 mg PO DAILY 04/29/17 12/21/17 Donepezil [Aricept] 2.5 mg PO HS 04/29/17 12/21/17 Glimepiride [Amaryl] 4 mg PO DAILY 04/29/17 12/21/17 Glucosamine HCl/Chondr Long A Na 1 tab PO DAILY 04/29/17 12/21/17 [[facility] Glucosamine-Chondr Tablet] Labetalol HCl 200 mg PO BID 04/29/17 12/21/17 Levothyroxine [Synthroid] 100 mcg PO 0630 04/29/17 12/21/17 Metformin HCl [Metformin HCl ER] 500 mg PO BID 04/29/17 12/21/17 Mv-Min/FA/Vit K/Lycop/Lut/Zeax 1 tab PO DAILY 04/29/17 12/21/17 [Ocuvite Eye Plus Multi Tablet] Pioglitazone HCl [Actos] 30 mg PO DAILY 04/29/17 12/21/17 Allergies Allergy/AdvReac Type Severity Reaction Status Date / Time No Known Allergies Allergy Verified 12/21/17 12:19 Constitutional: Denies: fever, chills ENT ED: Denies: congestion Cardiovascular: Denies: chest pain, palpitations, syncope Respiratory: Denies: cough, dyspnea Gastrointestinal: Reports: abdominal pain, nausea. Denies: vomiting, diarrhea, hematemesis, melena, hematochezia Genitourinary: Reports: hematuria. Denies: urgency, dysuria, frequency, testicular pain, testicular mass Musculoskeletal: Reports: back pain (To the right) Past Medical History - Past Medical History Medical history: Reports: dementia, diabetes, hypertension, thyroid disease Surgical history: Reports: no surgical history Psychiatric history: Reports: no psych history - Social History Smoking Status: Never smoker Smokeless Tobacco Status: No Alcohol use: Reports: none Drug use: Reports: none Physical Exam - General Limitations: no limitations General appearance: alert, in no apparent distress Course Vital Signs Temperature 97.9 F 12/21/17 10:19 Pulse Rate 60 12/21/17 10:19 Respiratory Rate 16 12/21/17 10:19 Blood Pressure 195/70 12/21/17 10:19 O2 Sat by Pulse Oximetry 97 12/21/17 10:19 Temperature 97.9 F 12/21/17 10:24 Pulse Rate 50 12/21/17 10:36 Respiratory Rate 20 12/21/17 10:36 Blood Pressure 172/69 12/21/17 10:36 O2 Sat by Pulse Oximetry 97 12/21/17 10:36 Oxygen Delivery Oxygen Delivery Room Air Medical Decision Making - MDM Narrative Medical decision making narrative: Abdomen/Pelvis CT 12/21/17 10:36 IMPRESSION: 1. Cholelithiasis with findings suggestive of acute cholecystitis. Initially, there appears to be a gallstone in the cystic duct with no findings suggestive of choledocholithiasis. Consider further evaluation with sonography, nuclear medicine hepatobiliary scan, and/or MRCP. 2. Incidental findings as above. D/ / Micha Gamez MD / Micha Gamez MD Interpreting Provider: Micha Gamez MD 1205 hrs. Spoke with contacted surgery Dr. Hameed, she is coming to see the patient. No GI coverage at this time. When she evaluates the patient will make this plan for admission. Versus transfer. Patient's in agreement with this plan and is resting comfortably. 1235 hrs.: Dr. Hameed a seen the patient and agrees with the admission. Started on antibiotics in the emergency department. - Lab Data Result diagrams: 12/21/17 10:36 12/21/17 10:36 Lab Results 12/21/17 12/21/17 12/21/17 Range/Units 10:36 10:36 11:30 WBC 8.6 (4.3-11.1) K/mcL RBC 4.23 (4.19-5.50) M/mcL Hgb 12.7 L (12.9-16.9) g/dL Hct 39.1 (37.5-50.1) % MCV 92.4 (83.0-100.0) fL MCH 30.0 (28.0-33.3) pg MCHC 32.5 (31.6-35.5) g/dL RDW 14.2 (11.5-14.5) % Plt Count 173 (140-400) K/mcL MPV 10.2 (9.4-12.4) fL Immature Gran % 0.5 (0-4) % Seg Neutrophils % 82.1 % Lymphocytes % 8.4 % Monocytes % 8.2 % Eosinophils % 0.4 % Basophils % 0.4 % Neutrophils # 7.0 (1.6-8.9) K/mcL Lymphocytes # 0.7 (0.6-4.6) K/mcL Monocytes # 0.7 (0.0-1.3) K/mcL Eosinophils # 0.0 (0.0-0.6) K/mcL Basophils # 0.0 (0.0-0.2) K/mcL Sodium 139 (136-145) mEq/L Potassium 4.4 (3.5-5.1) mEq/L Chloride 108 H (98-107) mEq/L Carbon Dioxide 23 (23-29) mEq/L BUN 26 H (8-23) mg/dL Creatinine 1.28 (0.70-1.30) mg/dL Est GFR ( Amer) > 60 (> 60) Est GFR (Non-Af Amer) 55 L (> 60) BUN/Creatinine Ratio 20 (6-26) Glucose 157 H (70-105) mg/dL Calculated Osmolality 296 (280-300) Calcium 9.4 (8.6-10.3) mg/dL Total Bilirubin 0.7 (0.3-1.0) mg/dL Direct Bilirubin 0.2 (0.0-0.2) mg/dL Indirect Bilirubin 0.5 (0.0-1.2) mg/dL AST 15 (13-39) Units/L ALT 10 (7-52) Units/L Alkaline Phosphatase 72 (34-104) Units/L Serum Total Protein 6.7 (6.4-8.9) g/dL Albumin 4.2 (3.5-5.7) g/dL Globulin 2.5 (2.4-3.5) g/dL Albumin/Globulin Ratio 1.7 (1.1-2.2) Amylase 99 (29-103) Units/L Lipase 103 H (11-82) Units/L Urine Color Yellow (Yellow) Urine Clarity Clear (Clear) Urine pH 5.5 (5.0-8.0) pH Units Ur Specific [place] 1.024 (1.010-1.025) Urine Protein >=300 H (Neg-Trace) mg/dL Urine Glucose (UA) Normal (Normal) mg/dL Urine Ketones 15 H (Negative) mg/dL Urine Blood Trace H (Negative) Urine Nitrite Negative (Negative) Urine Bilirubin Negative (Negative) Urine Urobilinogen Normal (Normal) mg/dL Ur Leukocyte Esterase Negative (Negative) Urine Microscopic RBC 0-3 (0-3) per hpf Urine Microscopic WBC 0-3 (0-3) per hpf Ur Squamous Epith Cells None Seen (None-Few) per lpf Urine Bacteria None Seen (None-Few) per hpf Hyaline Casts None Seen (None-Few) per lpf Ur Culture Indicated? NO (NO) Attestation Statement - Attestation Attestation: This documentation is done with the assistance of Dragon dictation. Despite efforts made to ensure accuracy, there may be inaccuracies in icu specialist or spelling and typographical errors. I examined this patient and my medical decision-making was reviewed with the Resident Physician. I agree with the documented findings, disposition and treatment plan as described except to the extent set forth below. Patient seen and evaluated by Dr. Espinal and myself, I agree with her evaluation and management plan, supervised care the patient's stay. Patient has right lower quadrant pains been going on since 10:00 last night no nausea or vomiting. Was seen earlier at the urgent care and they seem over here for further evaluation. History kidney disease but no kidney stones. We will try to make him more comfortable check a CT lab work and urinalysis and reassess. He is agreement with this plan.
[2017-12-21 11:13] LABS: Alanine Aminotransferase 10 Units/L (7-52); Albumin 4.2 g/dL (3.5-5.7); Albumin/Globulin Ratio 1.7 (1.1-2.2); Alkaline Phosphatase 72 Units/L (34-104); Aspartate Amino Transferase 15 Units/L (13-39); BUN/Creatinine Ratio 20 (6-26); Bilirubin,Direct 0.2 mg/dL (0.0-0.2); Bilirubin,Indirect 0.5 mg/dL (0.0-1.2); Bilirubin,Total 0.7 mg/dL (0.3-1.0); Blood Urea Nitrogen 26 mg/dL (8-23); Calcium 9.4 mg/dL (8.6-10.3); Carbon Dioxide 23 mEq/L (23-29); Chloride 108 mEq/L (98-107); Glucose 157 mg/dL (70-105); Osmolality,Calculated 296 (280-300); Potassium 4.4 mEq/L (3.5-5.1); Sodium 139 mEq/L (136-145); Total Protein 6.7 g/dL (6.4-8.9); eGFR For African Americans > 60 (> 60); eGFR For Non-African Americans 55 (> 60)
[2017-12-21 11:14] LABS: Globulin 2.5 g/dL (2.4-3.5); Lipase 103 Units/L (11-82)
[2017-12-21 11:40] LABS: Bilirubin,Urine Negative (Negative); Blood,Urine Trace (Negative); Clarity,Urine Clear (Clear); Color,Urine Yellow (Yellow); Glucose,Urine (UA) Normal (Normal); Ketones,Urine 15 mg/dL (Negative); Leukocyte Esterase,Urine Negative (Negative); Nitrite,Urine Negative (Negative); PH,Urine 5.5 pH Units (5.0-8.0); Protein,Urine >=300 mg/dL (Neg-Trace); Specific Gravity,Urine 1.024 (1.010-1.025); Urobilinogen,Urine Normal (Normal)
[2017-12-21 11:43] LABS: Bacteria,Urine None Seen per hpf (None-Few); Hyaline Casts,Urine None Seen per lpf (None-Few); RBC,Urine 0-3 per hpf (0-3); Squamous Epithelial Cell,Urine None Seen per lpf (None-Few); WBC,Urine 0-3 per hpf (0-3)
[2017-12-21] MEDS ORDERED: cefOXitin 1,000 MG in 0.9 % Sodium Chloride Mini Bag 100 ML IVPB ONE (12:10)
[2017-12-21 12:21] LABS: Amylase 99 Units/L (29-103)
[2017-12-21] MEDS ORDERED: Naloxone 0.4 MG/ML INJ IVP PRN (12:59)
[2017-12-21] MEDS ORDERED: Dextrose Gel 15 GM/37.5 ML TUBE PO PRN ×2 (13:10)
[2017-12-21] MEDS ORDERED: *HR* Dextrose 50 % in Water (Syg) 50 ML SYRINGE IVP PRN (13:10)
[2017-12-21] MEDS ORDERED: D5% in Water 1,000 ML IVC PRN (13:10)
--- NOTE | 2017-12-21 13:18 | Internal Med History&Physical ---
Date of Encounter: 12/21/17 Time of Encounter: 13:15 Internal Medicine - H&P: HPI Chief complaint: RLQ pain Admitted From: Home Plans for Post Hospital Care: Home (With home health, if needed) History of present illness: Mr. Mike is a 77 year old male with history of HTN, dementia, DM, thyroid dx, MANNY , and CKD. The patient was seen in the urgent care for RUQ pain that radiated to his back, and nausea. He was sent over to the ED for trace blood in urine and proteinuria. The ED found the patient to have a cystic duct calculus and cholecystictis by CT of abd/pelvis. UA showed trace blood, 300+ protein, and 15 ketones. The patient was started on cefoxitin in the ED and will continue on floor. Surgery saw patient in the ED and plans for a 0800 surgery, tomorrow. Wbc is 8.6. , lipase was 103, amylase was 99. Patient denied any heart history other than htn, was a smoker but quit 20+ yeas ago, and currently see's Dr. Hassan outpatient for his CKD. Today his creat is 1.28 and his bun is 26. EKG showed SB with first degree AVB. Patient had a similar EKG in 04/2017. Past Med Surg Social Fam HX - Past Medical History Medical history: dementia, diabetes, hypertension, thyroid disease Additional medical history: CKD stg 3. obstructive uropathy Psychiatric history: no psych history - Past Surgical History Surgical History: no surgical history Additional surgical history: colonoscopy - Social History Smoking Status: Never smoker Smokeless Tobacco Status: No Alcohol use: none Drug use: none - Family History Daughter Hx Family Cardiac Disorders: No Hx Family Respiratory Disorders: No Hx Family Cancer: No Hx Family GI Disorders: No Hx Family Endocrine Disorder: No Hx Family Neurologic Disorders: No Internal Medicine - H&P: Meds Aspirin [Lo-Dose Aspirin EC] 81 mg PO DAILY 04/29/17 [History] Atorvastatin [Lipitor] 40 mg PO HS 04/29/17 [History] Cyanocobalamin (Vitamin B-12) [Vitamin B-12] 1,000 mcg SL DAILY 04/29/17 [ History] Diltiazem HCl [Diltiazem 24Hr Cd] 360 mg PO DAILY 04/29/17 [History] Donepezil [Aricept] 2.5 mg PO HS 04/29/17 [History] Glimepiride [Amaryl] 4 mg PO DAILY 04/29/17 [History] Glucosamine HCl/Chondr Long A Na [[facility]vs Glucosamine-Chondr Tablet] 1 tab PO DAILY [History] Labetalol HCl 200 mg PO BID 04/29/17 [History] Levothyroxine [Synthroid] 100 mcg PO 0630 04/29/17 [History] Metformin HCl [Metformin HCl ER] 500 mg PO BID 04/29/17 [History] Mv-Min/FA/Vit K/Lycop/Lut/Zeax [Ocuvite Eye Plus Multi Tablet] 1 tab PO DAILY [History] Pioglitazone HCl [Actos] 30 mg PO DAILY 04/29/17 [History] 3 Allergy/AdvReac Type Severity Reaction Status Date / Time No Known Allergies Allergy Verified 12/21/17 12:19 All Systems PM: A 10-system review of systems was performed and is negative for pertinent findings except as documented above in the HPI. - Constitutional Constitutional: no chills, no fever(s), no night sweats - EENT Eyes: no change in vision, no discharge, no pain, no photophobia Ears: no ear discharge, no ear pain, no tinnitus Nose, mouth and throat: no dysphagia, no nasal discharge, no neck pain, no sore throat - Cardiovascular Cardiovascular ROS IM: other (Bradycardia), no chest pain, no diaphoresis, no dyspnea, no lightheadedness, no palpitations, no syncope - Respiratory Respiratory: no cough, no dyspnea, no wheezing, no excessive phlegm production - Gastrointestinal Gastrointestinal: abdominal pain (RLQ), nausea, no diarrhea, no hematemesis, no hematochezia, no melena, no vomiting - Genitourinary Genitourinary ROS male: flank pain - Musculoskeletal Musculoskeletal ROS IM: no numbness, no tingling - Integumentary Integumentary IM: no rash, no unusual bruising - Neurological Neurological ROS: no confusion, no convulsions, no focal weakness, no numbness, no tingling, no tremor(s) - Hematologic/Lymphatic Hematologic/Lymphatic: no easy bruising - Constitutional Vitals: Temp Pulse Resp BP Pulse Ox 97.9 F 49 20 148/84 96 12/21/17 10:24 12/21/17 13:00 12/21/17 13:00 12/21/17 13:00 12/21/17 13:00 General appearance: Present: A&O X 3, answers questions appropriately - Head Head exam: Present: atraumatic, normocephalic - Eye Eye exam: Present: PERRL, conjuntiva pink, sclera anicteric Pupils: Present: PERRL - Neck Neck exam general surgery: Present: supple, trachea midline. Absent: lymphadenopathy - Respiratory Respiratory exam: Present: CTAB. Absent: accessory muscle use, rales, rhonchi, wheezes - Cardiovascular Cardiovascular exam: Present: bradycardia, RRR, +S1, +S2. Absent: diastolic murmur, gallop, rubs, systolic murmur - GI/Abdominal GI/Abdominal exam: Present: normal bowel sounds, soft, no peritoneal signs. Absent: distended, tenderness (Denies at this time) - Extremities Exam Extremities exam: Present: warm, radial pulses palpable and symmetrical. Absent : calf tenderness, cyanotic, pedal edema - Neurological Exam Neurological exam: Present: alert (hx of dementia), CN II-XII intact, oriented X3, no focal deficits. Absent: pronater drift, facial droop, speech deficit - Skin Skin exam: Present: dry, intact Internal Med - H&P Results - Labs CBC & Chem 7: 12/21/17 10:36 12/21/17 10:36 - Assessment and plan (1) Cystic duct calculus Current Visit: Yes Status: Acute Assessment and plan: Management per surgery Plan is for surgery in am. Acetaminophen 650 mg po q4 prn pain (2) Cholecystitis Current Visit: Yes Status: Acute Assessment and plan: Management per surgery Plan is for surgery in am. Acetaminophen 650 mg po q4 prn pain (3) Chronic kidney disease, stage 3 Current Visit: No Status: Chronic Assessment and plan: Continue gentle IVF's Monitor labs daily (4) DMII (diabetes mellitus, type 2) Current Visit: No Status: Chronic Assessment and plan: Accucheck is controlled Goal is under 200 while inpatient Accu check ac/hs with mild humalog coverage A1C in am Monitor daily labs Qualifiers: Diabetes mellitus termite treater helper insulin use: unspecified termite treater helper insulin use status Diabetes mellitus complication status: with unspecified complications Qualified Code(s): E11.8 - Type 2 diabetes mellitus with unspecified complications (5) HTN (hypertension) Current Visit: No Status: Chronic Assessment and plan: Bp is uncontrolled at 172/69. Goal is under 140/80 Continue home medication dosing- cardizem Qualifiers: Hypertension type: essential hypertension Qualified Code(s): I10 - Essential (primary) hypertension (6) Urinary tract infection Current Visit: Yes Status: Suspected Assessment and plan: Ua showed 300+ protein, trace blood, and ketones 50, patient having flank pain at home Will continue IVF's Iv Cefoxitin given in the ED-will cover suspected UTI- will continue q8h Qualifiers: Urinary tract infection type: acute cystitis Hematuria presence: with hematuria Qualified Code(s): N30.01 - Acute cystitis with hematuria - Time Spent With Patient Total time spent is greater than 50% in coordination of care (as documented) at patient's floor/unit and/or counseling patient: 25 - 35 minutes
[2017-12-21] MEDS ORDERED: Acetaminophen 325 MG TABLET PO PRN (13:43)
--- NOTE | 2017-12-21 13:47 | General Surgery Consult Note ---
Date of Encounter: 12/21/17 Time of Encounter: 12:30 Assessment and Plan (1) Symptomatic cholelithiasis Current Visit: Yes Status: Acute Discussed CT results, labs and PE with patient and family he has symptomatic cholelithiasis, possible cholecystitis, will plan laparoscopic cholecystectomy, possible cholangiograms, possible open, risks and benefits discussed and he wishes to proceed admit, clears today, npo midnight antibiotics prn pain control prn antiemetics home medications managed per hospitalist will plan OR tomorrow History of Present Illness Consult date: 12/21/17 Reason for consult: gallstones Requesting physician: Martha Munoz History of present illness: Patient is a very pleasant 77 yo male with dementia. He states he started having diffused abdominal pain last night. The pain progressed over the evening into the morning and did not resolve and he had nausea without emesis. He denies diarrhea. His family has brought him into the ED where labs and CT scan was done. CT shows "Cholelithiasis and mild gallbladder distention with questionable subtle pericholecystic stranding. Suspected gallstone in the cystic duct. No intrahepatic nor extrahepatic biliary dilation." wbc 8.6 and lft wnl, lipase 103, amylase 99. Past Med Surg Social Fam HX - Past Medical History Source: patient, obtained from family Medical history: dementia, diabetes, hypertension, thyroid disease Additional medical history: CKD stg 3. obstructive uropathy Psychiatric history: no psych history - Past Surgical History Surgical History: no surgical history Additional surgical history: colonoscopy - Social History Smoking Status: Never smoker Smokeless Tobacco Status: No Alcohol use: none Drug use: none - Family History Daughter Hx Family Cardiac Disorders: No Hx Family Respiratory Disorders: No Hx Family Cancer: No Hx Family GI Disorders: No Hx Family Endocrine Disorder: No Hx Family Neurologic Disorders: No Medications and Allergies Aspirin [Lo-Dose Aspirin EC] 81 mg PO DAILY 04/29/17 [History] Atorvastatin [Lipitor] 40 mg PO HS 04/29/17 [History] Cyanocobalamin (Vitamin B-12) [Vitamin B-12] 1,000 mcg SL DAILY 04/29/17 [ History] Diltiazem HCl [Diltiazem 24Hr Cd] 360 mg PO DAILY 04/29/17 [History] Donepezil [Aricept] 2.5 mg PO HS 04/29/17 [History] Glimepiride [Amaryl] 4 mg PO DAILY 04/29/17 [History] Glucosamine HCl/Chondr Long A Na [[facility]vs Glucosamine-Chondr Tablet] 1 tab PO DAILY [History] Labetalol HCl 200 mg PO BID 04/29/17 [History] Levothyroxine [Synthroid] 100 mcg PO 0630 04/29/17 [History] Metformin HCl [Metformin HCl ER] 500 mg PO BID 04/29/17 [History] Mv-Min/FA/Vit K/Lycop/Lut/Zeax [Ocuvite Eye Plus Multi Tablet] 1 tab PO DAILY [History] Pioglitazone HCl [Actos] 30 mg PO DAILY 04/29/17 [History] 3 Allergy/AdvReac Type Severity Reaction Status Date / Time No Known Allergies Allergy Verified 12/21/17 12:19 Review of Systems All systems PM: reviewed and no additional remarkable complaints except as stated All systems PM: The remainder of the systems were reviewed and are negative General Surgery Exam Initial Vital Signs Temp Pulse Resp BP Pulse Ox 97.9 F 60 16 195/70 97 12/21/17 10:19 12/21/17 10:19 12/21/17 10:19 12/21/17 10:19 12/21/17 10:19 - General physical appearance well developed, well nourished, no distress - Eyes PERRL, normal ocular movement - ENT normal mucosa, normocephalic - Neck trachea midline - Respiratory normal expansion, clear to auscultation - Cardiovascular Cardiovascular exam: Present: RRR - Abdomen Abdomen general surgery: Present: bowel sounds present, soft, tender. Absent: distended, guarding, rebound Abdominal Tenderness: Present: RUQ - Integumentary Integumentary general surgery: Present: warm and dry, no abnormal pigmentation - Neurologic Present: CN 2-12 grossly intact - Musculoskeletal Present: normal posture - Psychiatric Psychiatric general surgery: Present: A&Ox3, speech is normal Exam Initial Vital Signs Temp Pulse Resp BP Pulse Ox 97.9 F 60 16 195/70 97 12/21/17 10:19 12/21/17 10:19 12/21/17 10:19 12/21/17 10:19 12/21/17 10:19 Results - Labs 12/22/17 05:32 12/22/17 05:32 Abnormal lab results Hgb 12.7 g/dL (12.9-16.9) L 12/21/17 10:36 Chloride 108 mEq/L (98-107) H 12/21/17 10:36 BUN 26 mg/dL (8-23) H 12/21/17 10:36 Est GFR (Non-Af Amer) 55 (> 60) L 12/21/17 10:36 Glucose 157 mg/dL (70-105) H 12/21/17 10:36 Lipase 103 Units/L (11-82) H 12/21/17 10:36 Urine Protein >=300 mg/dL (Neg-Trace) H 12/21/17 11:30 Urine Ketones 15 mg/dL (Negative) H 12/21/17 11:30 Urine Blood Trace (Negative) H 12/21/17 11:30 All other labs normal. - Imaging CT scan - abdomen: report reviewed, image reviewed CT scan - pelvis: report reviewed, image reviewed Consult Discharge Plan - Plan Referrals: Jayson Au MD [Primary Care Provider] -
[2017-12-21] MEDS: 0.9 % Sodium Chloride 1,000 ML IVC SCH (15:47)
[2017-12-21] MEDS ORDERED: Diltiazem CD (24hr) 180 MG CAPSULE PO SCH (16:00)
[2017-12-21] MEDS: *HR* Heparin 5,000 UNIT/ML VIAL SQ SCH (17:39)
[2017-12-21] MEDS: Insulin LISPRO 300 UNITS/3 ML VIAL SQ SCH (17:40)
[2017-12-21] MEDS: cefOXitin 1,000 MG in Water for inj. (sterile) 20 ML 10 ML IVP SCH (20:08)
[2017-12-21] MEDS ORDERED: Insulin LISPRO 300 UNITS/3 ML VIAL SQ SCH (21:00)
[2017-12-22] MEDS: cefOXitin 1,000 MG in Water for inj. (sterile) 20 ML 10 ML IVP SCH ×3 (03:55→21:43)
[2017-12-22] MEDS: 0.9 % Sodium Chloride 1,000 ML IVC SCH (03:55)
[2017-12-22] MEDS: *HR* Heparin 5,000 UNIT/ML VIAL SQ SCH (05:30)
[2017-12-22 06:05] LABS: Basophils % 0.3 %; Eosinophils % 0.3 %; Hematocrit 34.1 % (37.5-50.1); Immature Granulocytes % 0.3 % (0-4); Lymphocytes # 0.7 K/mcL (0.6-4.6); Lymphocytes % 9.5 %; Mean Corpuscular HGB Conc 32.6 g/dL (31.6-35.5); Mean Corpuscular Hemoglobin 30.3 pg (28.0-33.3); Mean Corpuscular Volume 93.2 fL (83.0-100.0); Mean Platelet Volume 10.6 fL (9.4-12.4); Monocytes # 0.7 K/mcL (0.0-1.3); Monocytes % 9.2 %; Platelet Count 159 K/mcL (140-400); Red Blood Count 3.66 M/mcL (4.19-5.50); Red Cell Distribution Width 14.2 % (11.5-14.5); Segmented Neutrophils % 80.4 %
[2017-12-22 06:08] LABS: Hemoglobin 11.1 g/dL (12.9-16.9)
[2017-12-22 06:12] LABS: INR 1.1; Prothrombin Time 12.7 Seconds (9.4-12.1)
[2017-12-22 06:23] LABS: Albumin 3.4 g/dL (3.5-5.7); Albumin/Globulin Ratio 1.6 (1.1-2.2); Bilirubin,Total 0.7 mg/dL (0.3-1.0); Calcium 8.6 mg/dL (8.6-10.3); Chol/HDL Ratio 2.3 (0-4.9); Globulin 2.1 g/dL (2.4-3.5); Magnesium 1.7 mg/dL (1.6-2.6); Potassium 4.6 mEq/L (3.5-5.1); Total Protein 5.5 g/dL (6.4-8.9)
[2017-12-22] MEDS ORDERED: Lidocaine -MPF 4% 5 ML AMPUL ONE (07:13)
[2017-12-22] MEDS ORDERED: *HR* FentaNYL (PF) 100 MCG/2 ML VIAL ONE (07:19)
[2017-12-22] MEDS ORDERED: Ondansetron 4 MG/2 ML VIAL ONE (07:19)
[2017-12-22] MEDS ORDERED: *HR* Rocuronium Bromide 50 MG/5 ML VIAL ONE (07:19)
[2017-12-22] MEDS ORDERED: *HR* Propofol 200 MG/20 ML VIAL IVP ONE (07:19)
[2017-12-22] MEDS ORDERED: Dexamethasone 4 MG/ML VIAL ONE (07:19)
[2017-12-22] MEDS ORDERED: Lidocaine -MPF 2% 2 ML VIAL ONE (07:19)
--- NOTE | 2017-12-22 07:24 | Anesthesia Evaluation PreOp ---
Date of Encounter: 12/22/17 Time of Encounter: 07:44 - Past History Planned Operation: Lap tavares, poss cholangiogram Cardiac History: HTN Pulmonary History: Former smoker NEON PUMPER History: Other (mild dementia) Other Medical History: Renal (acute on chronic kidney disease), Diabetes Type II (non-insulin dependent), Thyroid Anesthesia History: Past Anesthesia (bilateral total knee, colonoscopy), Problems (urinary retention) Alcohol Use: none Drug use: none Medications and Allergies Aspirin [Lo-Dose Aspirin EC] 81 mg PO DAILY 04/29/17 [History] Atorvastatin [Lipitor] 40 mg PO HS 04/29/17 [History] Cyanocobalamin (Vitamin B-12) [Vitamin B-12] 1,000 mcg SL DAILY 04/29/17 [ History] Diltiazem HCl [Diltiazem 24Hr Cd] 360 mg PO DAILY 04/29/17 [History] Donepezil [Aricept] 2.5 mg PO HS 04/29/17 [History] Glimepiride [Amaryl] 4 mg PO DAILY 04/29/17 [History] Glucosamine HCl/Chondr Long A Na [[facility]vs Glucosamine-Chondr Tablet] 1 tab PO DAILY [History] Labetalol HCl 200 mg PO BID 04/29/17 [History] Levothyroxine [Synthroid] 100 mcg PO 0630 04/29/17 [History] Metformin HCl [Metformin HCl ER] 500 mg PO BID 04/29/17 [History] Mv-Min/FA/Vit K/Lycop/Lut/Zeax [Ocuvite Eye Plus Multi Tablet] 1 tab PO DAILY [History] Pioglitazone HCl [Actos] 30 mg PO DAILY 04/29/17 [History] 3 Allergy/AdvReac Type Severity Reaction Status Date / Time No Known Allergies Allergy Verified 12/21/17 12:19 - Meds/Allergy Pre-op Review Medications Reviewed: Yes Allergies Reviewed: Yes Beta Blockers on Current Med List: Yes (labetalol) If Beta Blockers taken, Date/Time (Last Dose taken): 12-21-17 labetalol 20:08 Anesthesia Results - Labs 12/22/17 05:32 12/22/17 05:32 - Imaging EKG: report reviewed, image reviewed (SINUS BRADYCARDIA WITH FIRST DEGREE AV BLOCK) Anesthesia Exam Last Vital Signs Temp 98.6 F 12/22/17 03:54 Pulse 77 12/22/17 03:54 Resp 18 12/22/17 03:54 BP 145/63 12/22/17 03:54 Pulse Ox 93 12/22/17 03:54 Weight: 91 kg - HEENT Pupil (Motor): Pupils equal, EOMI Mallampati: II Teeth: Edentulous Oral Opening: Greater than 3 - NEON PUMPER LOC: Oriented - Cardiac Rhythm: Regular Murmur: None - Pulmonary Breath Sounds: bilateral Clear Respiratory Effort: Symmetrical Anesthesia Assess/Plan ASA Score: 3 Modified Atkinson Scale for Level of Consciousness: Cooperative, oriented, and tranquil Anesthetic Plan: General Monitoring Plan: Standard Monitors Recovery Plan: PACU
[2017-12-22] MEDS ORDERED: Isovue-300 50 ML VIAL IVP ONE (07:40)
[2017-12-22] MEDS ORDERED: Acetaminophen IV 1,000 MG/100 ML INFUS..BTL ONE (07:59)
[2017-12-22] MEDS ORDERED: EPHEDrine 50 MG/ML VIAL ONE (08:29)
[2017-12-22] MEDS ORDERED: *HR* Labetalol 20 MG/4 ML SYRINGE IVP PRN (08:38)
[2017-12-22] MEDS ORDERED: *HR* Morphine 2 MG/ML SYRINGE IVP PRN (08:38)
[2017-12-22] MEDS ORDERED: Dexamethasone 4 MG/ML VIAL IVP ONE (08:38)
[2017-12-22] MEDS ORDERED: Ondansetron 4 MG/2 ML VIAL IVP ONE (08:38)
[2017-12-22 08:48] LABS: Estimated Average Glucose 134 mg/dl; Hemoglobin A1C 6.3 %
[2017-12-22] MEDS ORDERED: Aspirin Enteric Coated 81 MG Tablet PO SCH (09:00)
[2017-12-22] MEDS ORDERED: Multivit/Ca/Min/Fe/FA 1 TAB TABLET PO SCH (09:00)
[2017-12-22] MEDS ORDERED: (Glucosamine Hcl/Chondr Su A Na [Cvs Glucosamine-Chon) PO SCH (09:00)
[2017-12-22] MEDS ORDERED: Diltiazem CD (24hr) 180 MG CAPSULE PO SCH (09:00)
[2017-12-22] MEDS ORDERED: Cyanocobalamin (B-12) 1,000 MCG TABLET PO SCH (09:00)
[2017-12-22] MEDS ORDERED: Neostigmine Methylsulfate 3 MG/3 ML SYRINGE ONE (09:07)
[2017-12-22] MEDS: Insulin LISPRO 300 UNITS/3 ML VIAL SQ SCH ×3 (09:58→18:07)
--- NOTE | 2017-12-22 10:00 | Anesthesia Evaluation Post Op ---
Date of Encounter: 12/22/17 Time of Encounter: 09:56 - Vital Signs Vital Signs: Last Vital Signs Temp 97.8 F 12/22/17 09:47 Pulse 67 12/22/17 09:47 Resp 16 12/22/17 09:47 BP 151/59 12/22/17 09:47 Pulse Ox 94 12/22/17 09:47 - Lungs Lungs: Clear Ascult./Percussion - Airway Airway: Non-obstructed - Cardiovascular Regular Rate - Mental Status Mental Status: Alert & Oriented, Answers Appropriately - Pain Pain Scale: 3 - Nausea Vomiting Nausea Vomiting: Not Present - Hydration Hydration: Ice chips - Discharge PostOp Status: Transfer Patient to floor
[2017-12-22] MEDS ORDERED: Ondansetron 4 MG/2 ML VIAL IVP PRN (10:09)
[2017-12-22] MEDS ORDERED: Naloxone 0.4 MG/ML INJ IVP PRN (10:09)
[2017-12-22] MEDS ORDERED: MORPHINE SUL Oral CONC 10 MG/0.5 ML ORAL.SYG PO PRN (10:09)
[2017-12-22] MEDS ORDERED: 0.9 % Sodium Chloride 1,000 ML IVC SCH (10:09)
[2017-12-22] MEDS ORDERED: D5% in Water 1,000 ML IVC PRN (10:09)
[2017-12-22] MEDS ORDERED: *HR* Dextrose 50 % in Water (Syg) 50 ML SYRINGE IVP PRN (10:09)
[2017-12-22] MEDS ORDERED: Dextrose Gel 15 GM/37.5 ML TUBE PO PRN ×2 (10:09)
[2017-12-22] MEDS ORDERED: Acetaminophen 325 MG TABLET PO PRN (10:09)
--- NOTE | 2017-12-22 11:19 | Operative Note ---
Date of procedure: 12/22/17 Pre-op diagnosis: Symptomatic cholelithiasis Post-op diagnosis: other (Gangrenous cholecystitis) Procedure: Laparoscopic cholecystectomy Complications: none immediate Anesthesia: GETA, local Local Anesthetics: 0.5% Sensorcaine HCL SubQ (cc) (30) Surgeon: Nancy Merino Was there an laundry assistant present: No Estimated blood loss (cc): 20 Specimen: gallbladder Condition: stable Disposition: PACU Procedure in Detail: The patient was brought into the operating suite and placed supine on the operating table. Sign-in was performed and everyone was in agreement. Anesthesia was induced and patient was endotracheally intubated by anesthesia without incident and they also placed an OG tube. The abdomen was prepped and draped in the usual sterile fashion. A timeout was performed again everyone was in agreement. A supraumbilical incision was made through the skin into the subcutaneous tissue with an 11 blade. Towel clamps were placed on either side of the umbilicus for retraction. S retractors were used to dissect down to the anterior abdominal wall linea alba fascia. A Veress needle was placed through this incision and a water drop test confirmed placement and the abdomen was insufflated. The abdomen was entered with a 5 mm 0 degree laparoscope on a 5 mm X-román trocar. The area and entry was visualized was no bleeding and no apparent bowel injury. A 5 mm subxiphoid port was placed under direct visualization after first incising the skin with an 11 blade. A right upper quadrant subcostal position midclavicular line 5 mm port was placed under direct visualization after first incising skin with 11 blade. The laparoscope was placed in this and we exchanged the supraumbilical port for a 12 mm port under direct visualization. The last 5 mm port was placed in the right upper quadrant subcostal position anterior axillary line after first incising the skin with an 11 blade. The patient was placed in steep reverse Trendelenburg left side down position. The dome of the gallbladder was grasped and retracted cephalad. The gallbladder was gangrenous and tense. The gallbladder was aspirated with the laparoscopic aspirator. Omental adhesions to the body and infundibulum of the gallbladder were taken down bluntly with the [place]. The infundibulum was grasped and retracted laterally. Using the [place], gentle blunt disssection with the suction and kittners we dissected out the cystic duct and cystic artery. Three 5 mm hemoclips were placed distally on the cystic duct one proximally and it was transected with curved scissors. The cystic artery was doubly clipped proximally, once distally and transected with curved scissors. The gallbladder was removed off the cystic plate with the Bovie. Any bleeding points were stopped with the Bovie. The gallbladder was placed in a laparoscopic Endo Catch bag and removed via the supraumbilical incision site. The inferior edge of the liver was bluntly retracted cephalad and the cystic plate was copiously irrigated with sterile saline. There was oozing that was stopped with the bovie and a large piece of surgicel was placed at the gallbladder fossa. There was no apparent bile leak from the cystic plate and the clips on the cystic artery and duct were intact. All irrigation was suctioned free from the abdomen. All insufflation was suctioned free from the abdomen and the ports removed. The abdominal wall at the supraumbilical incision site was closed with a 0 Vicryl [id number] stitch. 30 mL of 0.5% Marcaine was injected subcutaneously at the 4 port sites. The skin at the three 5 mm port sites were closed with 4-0 Monocryl interrupted subcuticular stitches. The skin at the supraumbilical incision site was closed with a 4-0 Monocryl running subcuticular stitch. Steri-Strips were applied to all wounds. The patient was awoken in the operating suite having tolerated the procedure well and were taken to PACU in stable condition after all lap and ensuring counts were correct at the end of the case
[2017-12-22] MEDS ORDERED: Diltiazem CD (24hr) 180 MG CAPSULE PO ONE (11:22)
[2017-12-22] MEDS: Nicotine 21 MG PATCH.TD24 TD SCH (11:28)
--- NOTE | 2017-12-22 16:43 | Internal Med Progress Note ---
Date of Encounter: 12/22/17 Time of Encounter: 11:30 - Assessment and plan (1) Acute gangrenous cholecystitis Current Visit: Yes Status: Acute Assessment and plan: S/P cholecystectomy today. Continue supportive care. Diet increased. Further plan per surgery. (2) DMII (diabetes mellitus, type 2) Current Visit: No Status: Chronic Assessment and plan: Monitoring sugars and covering. Qualifiers: Diabetes mellitus residential insulin use: without long winder tender use Diabetes mellitus complication status: with kidney complications Diabetes mellitus complication detail: with chronic kidney disease Chronic kidney disease stage : stage 3 (moderate) Qualified Code(s): E11.22 - Type 2 diabetes mellitus with diabetic chronic kidney disease; N18.3 - Chronic kidney disease, stage 3 ( moderate) (3) HTN (hypertension) Current Visit: No Status: Chronic Assessment and plan: Elevated post op. Restart meds and follow. Qualifiers: Hypertension type: essential hypertension Qualified Code(s): I10 - Essential (primary) hypertension (4) Dementia of the Alzheimer's type without behavioral disturbance Current Visit: Yes Status: Chronic Assessment and plan: Continue Aricept Qualifiers: Alzheimer's disease onset: late-onset Qualified Code(s): G30.1 - Alzheimer' s disease with late onset; F02.80 - Dementia in other diseases classified elsewhere without behavioral disturbance (5) Hypothyroid Current Visit: Yes Status: Chronic Assessment and plan: Continue med Qualifiers: Hypothyroidism type: acquired Qualified Code(s): E03.9 - Hypothyroidism, unspecified - Time Spent With Patient Total time spent is greater than 50% in coordination of care (as documented) at patient's floor/unit and/or counseling patient: - Subjective Interval history: Mr Mike is currently admitted for acute gangrenous cholecystitis. He is s/p cholecystectomy today. He remains moderate to high risk due to potential for worsening clinical status. Mr Mike just returned from OR. He is very hard of hearing. He has been somewhat confused and agitated. No fever or chills at this time. Feels hungry. - Constitutional Vitals: Temp Pulse Resp BP Pulse Ox 97.6 F 62 18 150/65 93 12/22/17 12:15 12/22/17 12:15 12/22/17 12:15 12/22/17 12:15 12/22/17 12:15 General appearance: Present: A&O X 3, answers questions appropriately - Head Head exam: Present: normocephalic - Eye Eye exam: Present: EOMI, conjuntiva pink - ENT ENT exam: Present: mucous membranes dry - Respiratory Respiratory exam: Present: decreased breath sounds. Absent: rales, rhonchi, wheezes - Cardiovascular Cardiovascular exam: Present: RRR. Absent: tachycardia - GI/Abdominal GI/Abdominal exam: Present: soft - Extremities Exam Extremities exam: Present: warm. Absent: tenderness - Neurological Exam Neurological exam: Present: alert, no focal deficits - Skin Skin exam: Present: dry, warm Internal Medicine: Result - Labs CBC & Chem 7: 12/22/17 05:32 12/22/17 05:32 Labs: Short CBC 12/22/17 Range/Units 05:32 WBC 7.5 (4.3-11.1) K/mcL Hgb 11.1 L D (12.9-16.9) g/dL Hct 34.1 L (37.5-50.1) % Plt Count 159 (140-400) K/mcL Neutrophils # 6.0 (1.6-8.9) K/mcL BMP 12/22/17 05:32 Sodium 139 Potassium 4.6 Chloride 110 H Carbon Dioxide 23 BUN 31 H Creatinine 1.46 H Glucose 134 H Calcium 8.6 Liver Function 12/22/17 Range/Units 05:32 Total Bilirubin 0.7 (0.3-1.0) mg/dL AST 12 L (13-39) Units/L ALT 8 (7-52) Units/L Alkaline Phosphatase 55 (34-104) Units/L Albumin 3.4 L (3.5-5.7) g/dL - ABG Interpretation ABG results: PT/INR, D-dimer PT 12.7 Seconds (9.4-12.1) H 12/22/17 05:32 - VTE Documentation of Mechanical Device: Intermittent pneumatic compression device Consult Discharge Plan - Plan Referrals: Jayson Au MD [Primary Care Provider] -
[2017-12-22] MEDS ORDERED: Haloperidol Lactate 5 MG/ML VIAL IVP ONE (18:25)
[2017-12-22] MEDS ORDERED: Haloperidol Lactate 5 MG/ML VIAL ONE (18:26)
[2017-12-22] MEDS ORDERED: Insulin LISPRO 300 UNITS/3 ML VIAL SQ SCH (21:00)
[2017-12-23] MEDS: cefOXitin 1,000 MG in Water for inj. (sterile) 20 ML 10 ML IVP SCH (04:57)
[2017-12-23 06:35] LABS: Basophils % 0.1 %; Hematocrit 34.7 % (37.5-50.1); Hemoglobin 11.4 g/dL (12.9-16.9); Immature Granulocytes % 0.5 % (0-4); Lymphocytes # 0.5 K/mcL (0.6-4.6); Lymphocytes % 3.9 %; Mean Corpuscular HGB Conc 32.9 g/dL (31.6-35.5); Mean Corpuscular Hemoglobin 29.9 pg (28.0-33.3); Mean Corpuscular Volume 91.1 fL (83.0-100.0); Mean Platelet Volume 11.1 fL (9.4-12.4); Monocytes # 0.8 K/mcL (0.0-1.3); Monocytes % 6.5 %; Neutrophils # 10.4 K/mcL (1.6-8.9); Platelet Count 183 K/mcL (140-400); Red Blood Count 3.81 M/mcL (4.19-5.50)
[2017-12-23 06:40] VITALS: BP 152/62
[2017-12-23 06:52] LABS: Albumin 3.6 g/dL (3.5-5.7); Albumin/Globulin Ratio 1.6 (1.1-2.2); Bilirubin,Direct 0.1 mg/dL (0.0-0.2); Bilirubin,Indirect 0.5 mg/dL (0.0-1.2); Bilirubin,Total 0.6 mg/dL (0.3-1.0); Calcium 8.9 mg/dL (8.6-10.3); Globulin 2.3 g/dL (2.4-3.5); Potassium 4.9 mEq/L (3.5-5.1); Total Protein 5.9 g/dL (6.4-8.9)
[2017-12-23] MEDS: Insulin LISPRO 300 UNITS/3 ML VIAL SQ SCH (07:44)
[2017-12-23] MEDS: Nicotine 21 MG PATCH.TD24 TD SCH (07:46)
--- NOTE | 2017-12-23 08:17 | General Surgery Progress Note ---
Date of Encounter: 12/23/17 Time of Encounter: 08:17 - Assessment and Plan (1) Acute gangrenous cholecystitis Current Visit: Yes Status: Resolved Date of procedure: 12/22/17 Pre-op diagnosis: Symptomatic cholelithiasis Post-op diagnosis: other (Gangrenous cholecystitis) Procedure: Laparoscopic cholecystectomy Complications: none immediate POD#1 as above. Pt is sitting upright at bedside eating oatmeal. He denies discomfort. He is ambulating in the room and voiding without difficulty. His abdominal exam is as expected. OK to d.c. from a surgical perspective (see d/c instructions under d/c plan). Subjective Patient reports: no new complaints, feels better, tolerating a regular diet, voiding w/o difficulty, no flatus, no bowel movement, afebrile Objective Vital Signs - Last 8 Hours Temp Pulse Resp BP Pulse Ox 12/23/17 06:31 97.7 F 59 16 152/62 94 12/23/17 03:35 98.6 F 67 15 149/64 94 Intake and Output 12/22/17 12/23/17 12/23/17 23:59 07:59 15:59 Intake Total 1250 / 1250 10 10 Output Total 0 / 0 Balance 1250 / 1250 10 10 Intake: IV Fluids 1010 / 1010 10 / 10 Mefoxin 1,000 MG In Water for 10 10 inj. (sterile) 10 ML @ 300 mls/ hr IVP Q8H [facility] Rx#:[id number] Oral 240 / 240 0 / 0 Output: Urine 0 / 0 Other: Meal Dinner Percent of Meal Consumed 25% # Voids 1 1 # Bowel Movements 1 Blood Glucose* 344 261 - General physical appearance no distress, other (Sitting upright at Edge of bed; eating breakfast) - Neck Neck exam: trachea midline, no venous distension - Respiratory normal expansion, normal respiratory effort, clear to auscultation - Cardiovascular Cardiovascular exam: Present: distant heart sounds - Abdomen Abdomen: Present: bowel sounds present (faint and hypoactive), soft, tender Hernia: none - Incision Incision: Present: clean and dry, intact - Integumentary no abnormal pigmentation - Neurologic normal sensation - Musculoskeletal normal posture - Psychiatric speech is normal (family at bedside) - Labs 12/23/17 05:32 12/23/17 05:32 Diabetes panel 12/23/17 Range/Units 05:32 Sodium 135 L (136-145) mEq/L Potassium 4.9 (3.5-5.1) mEq/L Chloride 105 (98-107) mEq/L Carbon Dioxide 22 L (23-29) mEq/L BUN 37 H (8-23) mg/dL Creatinine 1.65 H (0.70-1.30) mg/dL Glucose 278 H (70-105) mg/dL Calcium 8.9 (8.6-10.3) mg/dL AST 29 (13-39) Units/L ALT 30 (7-52) Units/L Alkaline Phosphatase 56 (34-104) Units/L Albumin 3.6 (3.5-5.7) g/dL Calcium panel 12/23/17 Range/Units 05:32 Calcium 8.9 (8.6-10.3) mg/dL Albumin 3.6 (3.5-5.7) g/dL Pituitary panel 12/23/17 Range/Units 05:32 Sodium 135 L (136-145) mEq/L Potassium 4.9 (3.5-5.1) mEq/L Chloride 105 (98-107) mEq/L Carbon Dioxide 22 L (23-29) mEq/L BUN 37 H (8-23) mg/dL Creatinine 1.65 H (0.70-1.30) mg/dL Glucose 278 H (70-105) mg/dL Calcium 8.9 (8.6-10.3) mg/dL Adrenal panel 12/23/17 Range/Units 05:32 Sodium 135 L (136-145) mEq/L Potassium 4.9 (3.5-5.1) mEq/L Chloride 105 (98-107) mEq/L Carbon Dioxide 22 L (23-29) mEq/L BUN 37 H (8-23) mg/dL Creatinine 1.65 H (0.70-1.30) mg/dL Glucose 278 H (70-105) mg/dL Calcium 8.9 (8.6-10.3) mg/dL Total Bilirubin 0.6 (0.3-1.0) mg/dL AST 29 (13-39) Units/L ALT 30 (7-52) Units/L Alkaline Phosphatase 56 (34-104) Units/L Albumin 3.6 (3.5-5.7) g/dL - VTE Documentation of Mechanical Device: Intermittent pneumatic compression device Consult Discharge Plan - Plan Instructions: Laparoscopic Cholecystectomy (DC) Additional Instructions: General Surgical Discharge Instructions 1. No pushing, pulling, or lifting greater than 15 lbs for 2-4 weeks (depending upon procedure). 2. You may shower beginning today, but no tub baths, soaking, or swimming for 2 weeks. 3. You may resume driving when you are off narcotics and are safe to react in a car. 4. Take ibuprofen every 8 hours for discomfort. If this does not relieve discomfort, you may take the as needed Percocet. Take narcotics as directed. Do not take more narcotics then directed and do not share your narcotics with any other person. Do not drink alcohol while on narcotics. 5. Take stool softeners (Colace) or a water based laxative (Miralax) while taking narcotics. You may hold for loose stools. 6. Report any fevers greater than 100.5F, increase abdominal discomfort, drainage that looks like pus, increased redness or pain at the surgical site, or any vomiting. 7. Report any pain in the calves, shortness of breath, or rapid heartbeat. 8. Follow-up in the office as directed. 9. If you were prescribed antibiotics, do not stop them without talking to your provider. Referrals: Jayson Au MD [Primary Care Provider] - Nohemi De La Torre CNP [Advanced Practice Nurse] - 01/06/18 1:30 pm Prescriptions: Amoxicillin/Clavulanate [Augmentin] 875 mg PO BIDWM #7 tablet Docusate [Colace] 100 mg PO BID #30 capsule HYDROcodone/Acet 5/325 mg [[place] 5-325 mg] 1 tab PO Q6H PRN 7 Days #28 tab PRN Reason: Moderate Pain Ibuprofen [Ibu] 800 mg PO Q8H PRN 14 Days #30 tablet PRN Reason: Mild Pain
[2017-12-23] MEDS ORDERED: Multivit/Ca/Min/Fe/FA 1 TAB TABLET PO SCH (09:00)
[2017-12-23] MEDS ORDERED: Cyanocobalamin (B-12) 1,000 MCG TABLET PO SCH (09:00)
[2017-12-23] MEDS ORDERED: GLUCOSAMINE HCL PO SCH (09:00)
[2017-12-23] MEDS ORDERED: Diltiazem CD (24hr) 180 MG CAPSULE PO SCH (09:00)
[2017-12-23] MEDS ORDERED: CHONDR SU A NA PO SCH (09:00)
--- NOTE | 2017-12-23 09:32 | Discharge Summary ---
- NOTES TO OUTPATIENT PROVIDER Notes to Outpatient Provider: Mr Mike was admitted with acute cholecystitis. He was taken to OR and found to have a gangrenous gallbladder. He did well post op and will be discharged home. Orders not resulted at time of discharge: Pending orders 12/22/17 09:15 Surgical Pathology [PTH] Routine Date of Encounter: 12/23/17 Time of Encounter: 08:45 - Discharge Diagnosis (1) Acute gangrenous cholecystitis Priority: Primary Status: Resolved (2) DMII (diabetes mellitus, type 2) Priority: Secondary Status: Chronic Qualifiers: Diabetes mellitus buttermaker continuous churn insulin use: without intermediate use Diabetes mellitus complication status: with kidney complications Diabetes mellitus complication detail: with chronic kidney disease Chronic kidney disease stage : stage 3 (moderate) Qualified Code(s): E11.22 - Type 2 diabetes mellitus with diabetic chronic kidney disease; N18.3 - Chronic kidney disease, stage 3 ( moderate) (3) HTN (hypertension) Priority: Secondary Status: Chronic Qualifiers: Hypertension type: essential hypertension Qualified Code(s): I10 - Essential (primary) hypertension (4) Dementia of the Alzheimer's type without behavioral disturbance Priority: Secondary Status: Chronic Qualifiers: Alzheimer's disease onset: late-onset Qualified Code(s): G30.1 - Alzheimer' s disease with late onset; F02.80 - Dementia in other diseases classified elsewhere without behavioral disturbance (5) Hypothyroid Priority: Secondary Status: Chronic Qualifiers: Hypothyroidism type: acquired Qualified Code(s): E03.9 - Hypothyroidism, unspecified Hospital course: Mr. Mike is a 77 year old male with hx of dementia presented to ED with abdominal pain. Found to have acute cholecystitis and admitted. Mr Mike was admitted with acute cholecystitis. He was taken to OR and found to have gangrenous gallbladder. He tolerated surgery well and was continued on abx. He had some issues with agitation post op but slept OK. Today he is afebrile. He is tolerating diet and has no significant pain. He is ready for discharge home. He has been prescribed abx and pain meds per surgery. Discharge discussed with: patient, family - Time Spent with Patient Total time spent providing and/or coordinating discharge services: 37min - Discharge Medications Prescriptions: Amoxicillin/Clavulanate [Augmentin] 875 mg PO BIDWM #7 tablet Docusate [Colace] 100 mg PO BID #30 capsule HYDROcodone/Acet 5/325 mg [[place] 5-325 mg] 1 tab PO Q6H PRN 7 Days #28 tab PRN Reason: Moderate Pain Ibuprofen [Ibu] 800 mg PO Q8H PRN 14 Days #30 tablet PRN Reason: Mild Pain Home Medications: Aspirin [Lo-Dose Aspirin EC] 81 mg PO DAILY 04/29/17 [History] Atorvastatin [Lipitor] 40 mg PO HS 04/29/17 [History] Cyanocobalamin (Vitamin B-12) [Vitamin B-12] 1,000 mcg SL DAILY 04/29/17 [ History] Diltiazem HCl [Diltiazem 24Hr Cd] 360 mg PO DAILY 04/29/17 [History] Donepezil [Aricept] 2.5 mg PO HS 04/29/17 [History] Glimepiride [Amaryl] 4 mg PO DAILY 04/29/17 [History] Glucosamine HCl/Chondr Long A Na [[facility] Glucosamine-Chondr Tablet] 1 tab PO DAILY [History] Labetalol HCl 200 mg PO BID 04/29/17 [History] Levothyroxine [Synthroid] 100 mcg PO 0630 04/29/17 [History] Metformin HCl [Metformin HCl ER] 500 mg PO BID 04/29/17 [History] Mv-Min/FA/Vit K/Lycop/Lut/Zeax [Ocuvite Eye Plus Multi Tablet] 1 tab PO DAILY [History] Pioglitazone HCl [Actos] 30 mg PO DAILY 04/29/17 [History] Amoxicillin/Clavulanate [Augmentin] 875 mg PO BIDWM #7 tablet 12/23/17 [Rx] Docusate [Colace] 100 mg PO BID #30 capsule 12/23/17 [Rx] HYDROcodone/Acet 5/325 mg [[place] 5-325 mg] 1 tab PO Q6H PRN 7 Days #28 tab 12/23 [Rx] Ibuprofen [Ibu] 800 mg PO Q8H PRN 14 Days #30 tablet 12/23/17 [Rx] Allergies/Adverse Reactions: 3 Allergy/AdvReac Type Severity Reaction Status Date / Time No Known Allergies Allergy Verified 12/21/17 12:19 Date of admission: 12/21/17 12:59 Primary care physician: Jayson Au MD Consults: 12/21/17 13:13 Consult to Surgery [CONS] Routine Consulting Provider: [facility] [place] [facility] Reason for Consult: Cystic duct calculus, and cholecystitis ----Notified in the ED Time Notified: 13:14 Call Completed: No Discharging clinician: Jeovanny Motta Anticipated date of discharge: 12/23/17 - Constitutional Vitals: Temp Pulse Resp BP Pulse Ox 97.7 F 59 16 152/62 94 12/23/17 06:31 12/23/17 06:31 12/23/17 06:31 12/23/17 06:31 12/23/17 06:31 General appearance: Present: A&O X 3, answers questions appropriately - Head Head exam: Present: normocephalic - Eye Eye exam: Present: EOMI, conjuntiva pink, sclera anicteric - ENT ENT exam: Present: mucous membranes moist - Respiratory Respiratory exam: Present: CTAB. Absent: rales, rhonchi, wheezes - Cardiovascular Cardiovascular exam: Present: RRR. Absent: tachycardia - GI/Abdominal GI/Abdominal exam: Present: normal bowel sounds, soft - Extremities Exam Extremities exam: Present: warm. Absent: tenderness - Neurological Exam Neurological exam: Present: alert, oriented X3 - Skin Skin exam: Present: dry, warm - Patient Status Disposition: Home, Self-Care Condition: Good Functional capacity at discharge: independent ambulation Overall status at discharge: patient is progressing back to baseline - Discharge Instructions Instructions: Laparoscopic Cholecystectomy (DC) Follow Up With: Nohemi De La Torre SERVICE AIDE [Advanced Practice Nurse] - 01/06/18 1:30 pm Additional Instructions: General Surgical Discharge Instructions 1. No pushing, pulling, or lifting greater than 15 lbs for 2-4 weeks (depending upon procedure). 2. You may shower beginning today, but no tub baths, soaking, or swimming for 2 weeks. 3. You may resume driving when you are off narcotics and are safe to react in a car. 4. Take ibuprofen every 8 hours for discomfort. If this does not relieve discomfort, you may take the as needed Percocet. Take narcotics as directed. Do not take more narcotics then directed and do not share your narcotics with any other person. Do not drink alcohol while on narcotics. 5. Take stool softeners (Colace) or a water based laxative (Miralax) while taking narcotics. You may hold for loose stools. 6. Report any fevers greater than 100.5F, increase abdominal discomfort, drainage that looks like pus, increased redness or pain at the surgical site, or any vomiting. 7. Report any pain in the calves, shortness of breath, or rapid heartbeat. 8. Follow-up in the office as directed. 9. If you were prescribed antibiotics, do not stop them without talking to your provider. - Diet and Activity Activity: increase activity as tolerated Diet: advance to your usual diet - VTE Documentation of Mechanical Device: Intermittent pneumatic compression device
--- NOTE | 2017-12-23 18:02 | Electrocardiograph Report ---
[address] [address] Test Date: 2017-12-21 Pat Name: Yasmany Mike Department: 104 Room: 3A Gender: M Finisher Map And Chart: STACEY : 1940 Requested By: Lion Leong Order Number: [id number] Reading MD: Jackson Aden Measurements Intervals [place] Rate: 58 P: 45 WV: 222 QRS: -12 QRSD: 92 T: 37 QT: 406 QTc: 403 Interpretive Statements SINUS BRADYCARDIA WITH FIRST DEGREE AV BLOCK Poor R wave progression Electronically Signed On 12-23-2017 18:00:31 EDT by Jackson Aden
== END 2017-12-23 10:47 | disposition home or self-care (01) | DRG 418 ==
LOC: EMEROO 10:17 → 3ANU 10:17 → SUATTDRO 12:59 → 3ANU 13:56
PROVIDERS: ADMIT Internal Medicine; ATTEND Internal Medicine